=== PATIENT | male | born 1955 | race Caucasian/White ===

== ENCOUNTER 2023-04-22 20:56 | Inpatient (IN) | payer MEDICARE, SELFPAY ==
[2023-04-22 20:57] VITALS: BP 186/110; PULSE 111; RESP 12; TEMP 36.6; O2SAT 99
--- NOTE | 2023-04-22 21:05 | EKG12_ITS ---
Test Reason : CP Blood Pressure : / mmHG Vent. Rate : 097 BPM Atrial Rate : 097 BPM P-R Int : 162 ms QRS Dur : 072 ms QT Int : 340 ms P-R-T Axes : 039 025 047 degrees QTc Int : 431 ms Normal sinus rhythm Normal ECG Confirmed by Khoa Malagon ([id number]), city editor LIT GARNER ([id number]) on 04/24/2023 9:32:45 AM Referred By: Boris Garza Confirmed By:Khoa Malagon
--- NOTE | 2023-04-22 21:08 | ED.VIS.CHEST ---
HPI History of Present Illness Chief Complaint: Chest Pain [facility] Medical History (Updated 04/22/23 @ 23:[address] Boris Garza MD) Chest pain Diabetes History of chemotherapy Prostate cancer Home Medications enzalutamide 80 mg tablet (Xtandi) 80 mg PO DAILY 04/22/23 [History Last Taken Unknown] metformin 500 mg tablet 500 mg PO BID 04/22/23 [History Last Taken Unknown] Allergy/AdvReac Type Severity Reaction Status Date / Time No Known Allergies Allergy Verified 04/22/23 20:59 Family History (Updated 04/22/23 @ 21:23 by Dede Givens) Father Myocardial infarction Sister Cancer Social History Smoking Status: Never smoker EXAM Physical Exam Const Vital Signs: 04/22/23 20:57 Temperature 98 F Temperature Source Temporal Pulse Rate 111 H Respiratory Rate 12 Blood Pressure 186/110 H Blood Pressure Mean 135 Pulse Ox 99 Oxygen Delivery Method Room Air MDM MDM MDM Narrative Medical decision making narrative: HISTORY OF PRESENT ILLNESS: 68-year-old male presents with chest pain. Notes diaphoresis. Notes left-sided chest pain. Is nonradiating. It is not exertional. It is worse with with a deep breath. Denies any bleeding diathesis. Denies any vomiting. Denies any cough or fever. Denies any leg swelling. Notes history of prostate cancer last chemo was 2 weeks ago. Denies history of blood clots. Denies history of smoking. Notes no cardiac history. Denies loss of consciousness. REVIEW OF SYSTEMS: Pertinent positives: Chest pain, diaphoresis Pertinent negatives: Shortness of breath, cough, syncope PHYSICAL EXAM: Nursing triage notes reviewed, Vital signs reviewed Constitutional: please see mdm HENT: MMM Eyes: Pupils equal round and reactive to light, Extraocular muscles intact Neck: No stridor, no JVD, full neck ROM Lungs: Clear to auscultation, No wheezing or rales. No increased work of breathing, no conversational dyspnea, no accessory muscle use, no nasal flaring. No respiratory distress noted Heart: Regular rate and rhythm, No murmurs, No rubs and No gallops, 2+ distal pulses (radial, femoral, posterior tibial) in all extremities Abdomen: Soft, there is no tenderness, rigidity, rebound or guarding, no obvious peritoneal signs, no palpable pulsatile abdominal masses, no auscultated abdominal bruit : No CVAT Extremities: No edema, no stigmata of VTE Neuro: No focal neurological deficits, cranial nerves II through XII intact, 5/5 strength in all extremities. Intact sensation to light touch in all extremities, 2+ reflexes bilateral patella tendons. Normal gait. No ataxia. Skin: No rash or lesions noted MEDICAL DECISION MAKING: Chief Complaint: Chest pain External records reviewed: No recent Jenkins imaging of the chest Factors affecting care: Type 2 diabetes, hyperlipidemia, prostate cancer Social determinants of health: none History obtained from others: The patient's family Consults: Internal medicine MDM Narrative: Patient was initially tachycardic, hypertensive, he was afebrile. No focal lung findings. No pulse deficits. No stigmata of VTE or lower extremity edema noted on exam. I considered the following differential diagnosis: ACS, PE, aortic dissection, anemia, arrhythmia, pneumonia The patient no cough, fever or chills no focal lung findings to suggest pneumonia. He is not hypoxic to suggest pneumonia either. ALL IMAGES (IF OBTAINED) HAVE BEEN PERSONALLY REVIEWED AND INTERPRETED BY MYSELF. Initial EKG showed normal sinus rhythm, normal axis, normal normals, no STEMI High-sensitivity troponin is negative, no evidence of myocardial ischemia CBC with mild anemia, no thrombocytopenia or leukocytosis BMP without evidence of significant electrolyte abnormalities, no anion gap, no acute kidney injury. CT of the chest shows no evidence of PE or pneumonia I have personally reviewed the patient's chest x-ray. Chest x-ray is unremarkable for pulmonary edema, pneumothorax, pneumonia or focal cardiopulmonary abnormality. I have a low suspicion for pneumonia given patient no elevated white blood cell count, no fever no focal findings on chest x-ray. The etiology patient complaint remains unclear however he does have an elevated heart score and has active chest pain. Will continue serial cardiac biomarkers. Gave as needed nitroglycerin and morphine. Discussed case with Dr. Garza accept the case to the floor. The patient and/or family, caregivers express understanding. The patient and/or family, caregivers agrees with the plan. Shared decision making: I will have a discussion with the patient and or visitors regarding risk/benefits of further testing or admission. They will be made aware of of the risk/benefits inherent in this decision they will be given the opportunity to voice understanding. Total critical care time today provided was at least 0 minutes. This excludes separately billable procedures. Critical care time (if documented) is secondary to the patient having high probability of clinically significant/life threatening deterioration in the patient's condition which required my urgent intervention. Impression: 1. Chest pain 2. Anemia Dispo: Admit to floor for observation, serial biomarkers and confirmatory testing This note was generated with [employer] dictation software. It may contain incorrect words, spelling, and punctuation that were not noted in review of the chart prior to signing. Discharge Plan Triage Chief Complaint: Chest Pain ED Provider: Genaro Seals Dx/Rx/DC Orders Primary Care Provider: Yogesh Fraser
[2023-04-22 21:10] LABS: Absolute Lymphocyte Count 0.42 X10^3/uL (0.83-4.51); Absolute Neutrophil Count 3.5 X10^3/uL (2.0-7.7); Basophil# 0.04 X10^3/uL; Basophil% 0.9 % (0-1); Eosinophil# 0.19 X10^3/uL; Eosinophils% 4.1 % (0-5); Hematocrit 34.6 % (40-54); Hemoglobin 12.2 g/dL (13.0-16.5); Lymphocyte # 0.42 X10^3/ul (0.83-4.51); Mean Corp Hgb Conc 35.3 g/dL (32-36); Mean Corpuscular Hgb 32.4 pg (27.0-32.0); Mean Corpuscular Volume 91.8 fL (80-94); Mean Platelet Vol. 10.4 fl (6.2-12.0); Monocyte# 0.52 X10^3/uL; Monocyte% 11.1 % (0-10); NRBC Flagged by Analyzer 0 % (0-5); Neutrophil # 3.47 X10^3/uL (2.7-7.7); Neutrophil % 74.3 % (47-70); POSITIVE DIFFERENTIAL YES; Platelet Count 201 K/mm3 (150-450); RBC Distribution Width CV 13.9 % (11.6-14.6); RBC Distribution Width SD 45.1 fl (35.1-43.9); Red Blood Count 3.77 M/mm3 (4.6-6.2); White Blood Count 4.7 K/mm3 (4.4-11.0)
[2023-04-22 21:13] VITALS: BP 161/95; PULSE 105; RESP 20; O2SAT 98
[2023-04-22 21:14] VITALS: BMI 31.8
--- NOTE | 2023-04-22 21:20 | RAD_ITS ---
INDICATION: chest pain EXAMINATION/TECHNIQUE: X-RAY - XR Chest 1 View COMPARISON: CT chest obtained subsequently, April 22, 2023 at 9:41 PM. FINDINGS: LINES/DEVICES: None. LUNGS: Left lower lobe/lingular thin linear opacity suggesting atelectasis or scarring. Lungs are otherwise clear without consolidation, nodule, pleural effusion or pneumothorax. Interstitial pattern is normal. MEDIASTINUM AND CARDIOVASCULAR STRUCTURES: Normal size and contour of the cardiomediastinal silhouette. No evidence of pulmonary vascular congestion. BONES AND SOFT TISSUES: Degenerative arthrosis acromioclavicular joints. RAD/Chest 1 View (Portable) IMPRESSION: 1. Left lower lobe/lingular linear opacity suggesting scarring or atelectasis. Electronically Signed: Khoa Goldsmith DO at 22:23 EST ,
--- NOTE | 2023-04-22 21:25 | CT_ITS ---
STUDY: CTA CHEST REASON FOR EXAM: Male, 68 years old. chest pain on chemo, tachy rule out PE RADIATION DOSAGE (If Supplied By Facility): CTDIvol = ( 11.16 ) mGy, DLP = ( 410.61 ) mGycm TECHNIQUE: The examination was performed with the intravenous administration of IV 100mL Isovue-370. Post-processing of the angiographic images was performed, with multiplanar reformation and 3D reconstruction. Individualized dose optimization techniques were used for this CT. COMPARISON: Chest x-ray April 22, 2023. FINDINGS: Adequate density of contrast in the pulmonary arteries and no significant motion; diagnostic exam. No pulmonary artery filling defect to suggest pulmonary embolism. There is no evidence of right heart strain. Normal size heart. No pericardial fluid. Minimal coronary artery calcifications. No mediastinal or hilar lymphadenopathy. There is some mild proximal peribronchial opacity/thickening bilaterally. No appreciable narrowing of bronchial airways. No endobronchial debris. Normal lung volumes without airtrapping. No airspace opacity or abnormal interstitial pattern. No nodule or mass. No pleural effusion or pneumothorax. There is posterior, inferior lingular scarring and/or atelectasis. Thyroid gland and base of the neck are within normal limits. No axillary lymphadenopathy. No fracture or focal osseous lesion. Visualized solid and hollow viscus organs are within normal limits of the exam. CT/CTA Chest W/WO Contrast IMPRESSION: 1. No pulmonary embolism. 2. Mild bilateral peribronchial opacity/thickening. No appreciable narrowing of the bronchial airways. No endobronchial debris. 3. Posterior, inferior, lingular scarring and/or atelectasis. Electronically Signed: Khoa Goldsmith DO at 22:41 EST ,
[2023-04-22 21:28] LABS: Anion Gap 5 (5-15); BUN 23 mg/dL (7-18); Calcium,Total 9.5 mg/dL (8.5-10.1); Chloride 109 mmol/L (98-107); Creatinine, Serum 1.15 mg/dL (0.70-1.30); EST Glomerular Filtration Rate 67 mL/min (>60); Est Glom Filt Rate - Afr Amer 81 mL/min (>60); Estimated Creatinine Clearance 67.78 ml/min; Glucose 174 mg/dL (74-106); Potassium 4.2 mmol/L (3.5-5.1); Sodium Level 138 mmol/L (136-145); Troponin-I HS (w/2H Reflex) 4 pg/mL (3.0-78.0)
[2023-04-22 22:00] VITALS: BP 174/122; PULSE 100; RESP 25; O2SAT 96
[2023-04-22] MEDS: 0.9% Normal Saline (1000mL) 1,000 ML 999 ML IV (22:07)
[2023-04-22 22:21] VITALS: BP 164/95; PULSE 97
[2023-04-22] MEDS: Nitroglycerin SL (ED/IMG/CATH) 0.4 MG TABLET 0.400000000000000022 MG SL (22:21)
--- NOTE | 2023-04-22 22:56 | EKG12_ITS ---
Test Reason : ADMIT EKG Blood Pressure : / mmHG Vent. Rate : 097 BPM Atrial Rate : 097 BPM P-R Int : 172 ms QRS Dur : 084 ms QT Int : 348 ms P-R-T Axes : 049 018 042 degrees QTc Int : 441 ms Normal sinus rhythm Normal ECG When compared with ECG of 22-APR-2023 23:13, MANUAL COMPARISON REQUIRED, DATA IS UNCONFIRMED Confirmed by Khoa Mlaagon ([id number]), video editor LIT GARNER ([id number]) on 04/23/2023 2:20:40 PM Referred By: Boris Garza Confirmed By:Khoa Malagon
--- NOTE | 2023-04-22 23:03 | PCM.HP.STD ---
HPI - General General Date of Admission: 04/22/23 Date of Service: 04/22/23 Chief Complaint: Chest pain HPI Narrative PRATIMA TAO, is a 68 M who presents to the emergency room with acute chest pain. Patient has significant past medical history of prostate cancer in remission who received chemotherapy last Saturday. Patient states this evening he was carrying some bags up the some stairs when he developed substernal chest discomfort along with start shortness of breath and nausea but no vomiting. Patient denies any cardiac history and no previous cardiac stress test. Initial troponin was negative in the emergency room EKG x [address] was negative for acute ST changes. Patient also denies a history of smoking. Currently during my interview the patient's chest pressure was substernal nonradiating and described as 7/10 in strength. His blood pressure was initially hypertensive upon arrival but after receiving nitroglycerin had lowered substantially and was being monitored. Blood pressure had recovered to normotensive and therefore he could receive another dose of nitroglycerin per my request in the emergency room prior to being transferred to the progressive care unit for observation. Patient will be admitted to PCU cardiac enzymes monitored and stress test in the morning. [facility] Medical History (Updated 04/22/23 @ 23:[address] Boris Garza MD) Chest pain Diabetes History of chemotherapy Prostate cancer Home Medications enzalutamide 80 mg tablet (Xtandi) 80 mg PO DAILY 04/22/23 [History Last Taken Unknown] metformin 500 mg tablet 500 mg PO BID 04/22/23 [History Last Taken Unknown] Allergy/AdvReac Type Severity Reaction Status Date / Time No Known Allergies Allergy Verified 04/22/23 20:59 Family History (Updated 04/22/23 @ 21:23 by Dede Givens) Father Myocardial infarction Sister Cancer Social History Smoking Status: Never smoker ROS Constitutional Constitutional: Denies chills or fever(s) Eyes Eyes: Denies blurry vision ENT HEENT: Denies abnormal hearing Cardiovascular Cardiovascular: Reports chest pain Respiratory/Chest Respiratory/Chest: Denies cough Gastrointestinal Gastrointestinal: Denies abdominal pain or diarrhea Genitourinary Genitourinary: Denies dysuria Musculoskeletal Musculoskeletal: Denies back pain or extremity pain Integumentary Integumentary: Denies dry skin Neurologic Neurologic: Denies abnormal gait Psychiatric Psychiatric: Denies anxiety Vital Signs Vital Signs Vital Signs: 04/22/23 20:57 04/22/23 21:13 04/22/23 21:05 Temperature 98 F Temperature Source Temporal Pulse Rate 111 H 105 H Respiratory Rate 12 20 H Respiratory Effort Respiratory Pattern Blood Pressure 186/110 H 161/95 H Blood Pressure Mean 135 117 Pulse Ox 99 98 Oxygen Delivery Method Room Air Room Air Room Air 04/22/23 21:28 04/22/23 22:00 04/22/23 22:21 Temperature Temperature Source Pulse Rate 100 Respiratory Rate 25 H Respiratory Effort Short of Breath Respiratory Pattern Normal Blood Pressure 174/122 H 164/95 H Blood Pressure Mean 139 118 Pulse Ox 96 Oxygen Delivery Method Room Air 04/22/23 22:21 Temperature Temperature Source Pulse Rate 97 Respiratory Rate Respiratory Effort Respiratory Pattern Blood Pressure 164/95 H Blood Pressure Mean Pulse Ox Oxygen Delivery Method Weight Weight: 209 lb 7.026 oz Body Mass Index (BMI) 31.8 Physical Exam Const alert, oriented x3 and no apparent distress General Appearance: cooperative and well developed HEENT normocephalic and head/scalp atraumatic Eyes PERRL Neck no lymphadenopathy Lymph Lymphatic: no lymphadenopathy noted Resp normal respiratory effort, normal air movement and clear to auscultation bilaterally Cardio regular rate, regular rhythm, S1 normal heart sound, S2 normal heart sound and no murmurs GI normal to inspection, nondistended, normoactive bowel sounds Extremity normal capillary refill Skin General Skin Exam: no breakdown Neuro no focal motor deficits and no sensory deficits noted Psych thought process normal, cooperative and affect normal Appearance: appropriate Results Lab / Micro Data 04/22/23 21:06 04/22/23 21:06 Labs: Laboratory Results - last 24 hr 04/22/23 21:06: WBC 4.7, RBC 3.77 L, Hgb 12.2 L, Hct 34.6 L, MCV 91.8, MCH 32.4 H, MCHC 35.3, RDW Std Deviation 45.1 H, RDW Coeff of Terra 13.9, Plt Count 201, MPV 10.4, Immature Gran % (Auto) 0.600, Neut % (Auto) 74.3 H, Lymph % (Auto) 9.0 L, [place] % (Auto) 11.1 H, Eos % (Auto) 4.1, Baso % (Auto) 0.9, Absolute Neuts (auto) 3.5, Absolute Lymphs (auto) 0.42 L, Nucleated RBC % 0, Sodium 138, Potassium 4.2, Chloride 109 H, Carbon Dioxide 24.0, Anion Gap 5, BUN 23 H, Creatinine 1.15, Estim Creat Clear Calc 67.78, Est GFR (MDRD) Af Amer 81, Est GFR (MDRD) Non-Af 67, BUN/Creatinine Ratio 20.0, Glucose 174 H, Calcium 9.5, Troponin I High Sens 4 Imaging Radiology Impression Chest X-Ray 04/22/23 21:20 IMPRESSION: 1. Left lower lobe/lingular linear opacity suggesting scarring or atelectasis. Electronically Signed: Khoa Goldsmith DO at 22:23 EST , Chest CTA 04/22/23 21:25 IMPRESSION: 1. No pulmonary embolism. 2. Mild bilateral peribronchial opacity/thickening. No appreciable narrowing of the bronchial airways. No endobronchial debris. 3. Posterior, inferior, lingular scarring and/or atelectasis. Electronically Signed: Khoa Goldsmith DO at 22:41 EST , Assessment & Plan Assessment/Plan (1) Prostate cancer: (2) History of chemotherapy: (3) Diabetes: (4) Chest pain: PLAN: Plan 1. Chest pain?rule out GA, admit for observation to progressive care unit, cycle cardiac enzymes per routine, order nuclear exercise stress test for the morning. Will add as needed nitroglycerin and morphine as needed for chest pain with parameters regarding blood pressure. Will also add baby aspirin 2. Diabetes?continue routine home medication 3. Prostate cancer and history of chemotherapy?stable will continue routine home medications at this time 4. DVT prophylaxis?low molecular weight heparin Charges/Coding Visit Charges OBSV E&M: 13015 Observ/hosp same date L2
[2023-04-22 23:08] LABS: Reflex Troponin-HS? (from REC) Y
[2023-04-22] MEDS: Ketorolac 15 MG/ML Vial IV (23:25)
--- NOTE | 2023-04-22 23:29 | EKG12_ITS ---
Test Reason : REPEAT CP Blood Pressure : / mmHG Vent. Rate : 101 BPM Atrial Rate : 101 BPM P-R Int : 168 ms QRS Dur : 076 ms QT Int : 344 ms P-R-T Axes : 060 029 056 degrees QTc Int : 446 ms Sinus tachycardia Otherwise normal ECG Confirmed by Khoa Malagon ([id number]), social media editor LIT GARNER ([id number]) on 04/24/2023 9:33:18 AM Referred By: Boris Garza Confirmed By:Khoa Malagon
[2023-04-22 23:30] VITALS: BP 122/75; PULSE 107; RESP 23; TEMP 37.1; O2SAT 94
[2023-04-22 23:42] VITALS: BMI 30.9
[2023-04-22 23:47] VITALS: BP 119/65; PULSE 103; RESP 20; TEMP 37.2; O2SAT 97
[2023-04-22 23:47] LABS: Troponin-I HS 4 pg/mL (3.0-78.0)
[2023-04-23] MEDS: Aspirin 325 MG Tablet PO (00:07)
[2023-04-23 00:10] VITALS: O2SAT 97
--- NOTE | 2023-04-23 00:11 | EKG12_ITS ---
Test Reason : REPEAT CP Blood Pressure : / mmHG Vent. Rate : 099 BPM Atrial Rate : 099 BPM P-R Int : 164 ms QRS Dur : 080 ms QT Int : 344 ms P-R-T Axes : 043 019 048 degrees QTc Int : 441 ms Normal sinus rhythm Normal ECG Confirmed by Khoa Malagon ([id number]), order editor LIT GARNER ([id number]) on 04/24/2023 9:32:56 AM Referred By: Boris Garza Confirmed By:Khoa Malagon
[2023-04-23 03:35] LABS: Absolute Lymphocyte Count 0.31 X10^3/uL (0.83-4.51); Absolute Neutrophil Count 3.2 X10^3/uL (2.0-7.7); Basophil# 0.03 X10^3/uL; Basophil% 0.7 % (0-1); Eosinophil# 0.07 X10^3/uL; Eosinophils% 1.7 % (0-5); Hematocrit 29.7 % (40-54); Hemoglobin 10.7 g/dL (13.0-16.5); Lymphocyte # 0.31 X10^3/ul (0.83-4.51); Lymphocyte % 7.4 % (19-41); Mean Corpuscular Hgb 33.4 pg (27.0-32.0); Mean Corpuscular Volume 92.8 fL (80-94); Mean Platelet Vol. 9.2 fl (6.2-12.0); Monocyte# 0.61 X10^3/uL; Monocyte% 14.5 % (0-10); NRBC Flagged by Analyzer 0 % (0-5); Neutrophil # 3.18 X10^3/uL (2.7-7.7); Neutrophil % 75.5 % (47-70); POSITIVE DIFFERENTIAL YES; Platelet Count 130 K/mm3 (150-450); RBC Distribution Width CV 13.7 % (11.6-14.6); RBC Distribution Width SD 45.7 fl (35.1-43.9); White Blood Count 4.2 K/mm3 (4.4-11.0)
[2023-04-23 03:52] LABS: Anion Gap 5 (5-15); BUN 23 mg/dL (7-18); BUN/Creat Ratio 22.1 RATIO (10-20); Calcium,Total 8.4 mg/dL (8.5-10.1); Chloride 108 mmol/L (98-107); Creatinine, Serum 1.04 mg/dL (0.70-1.30); EST Glomerular Filtration Rate 75 mL/min (>60); Est Glom Filt Rate - Afr Amer 91 mL/min (>60); Estimated Creatinine Clearance 76.25 ml/min; Glucose 190 mg/dL (74-106); Potassium 4.3 mmol/L (3.5-5.1); Sodium Level 141 mmol/L (136-145)
[2023-04-23 03:55] LABS: Troponin-I HS 6 pg/mL (3.0-78.0)
[2023-04-23 05:45] VITALS: BP 115/69; PULSE 85; RESP 16; TEMP 36.2; O2SAT 95
[2023-04-23 07:14] VITALS: O2SAT 97
--- NOTE | 2023-04-23 07:55 | PN.HOSP_ITS ---
Reason for Visit Reason for Visit: Diagnoses Malignant neoplasm of prostate (04/22/23) Type 2 diabetes mellitus without complications (04/22/23) Chest pain, unspecified (04/22/23) Personal history of antineoplastic chemotherapy (04/22/23) Subjective Subjective Patient is a 68-year-old gentleman admitted with chest pain Objective Data Objective Data Vital Signs: Vital Signs Temp Pulse Resp BP Pulse Ox O2 Del Method 97.1 F L 85 16 115/69 97 Room Air 04/23/23 05:45 04/23/23 05:45 04/23/23 05:45 04/23/23 05:45 04/23/23 07:14 04/23/23 07:14 Oxygen Delivery Method Room Air Weight: 95 kg Body Mass Index (BMI) 30.9 Intake & Output: Intake and Output for Last 24 Hours 04/21/23 04/22/23 04/23/23 23:59 23:59 23:59 Intake Total 1000 / 1100 100 / 100 Output Total 400 / 400 Balance 1000 / 1100 -300 / -300 Lab / Micro Data 04/23/23 03:24 04/23/23 03:24 Labs: Laboratory Results - last 24 hr 04/22/23 21:06: WBC 4.7, RBC 3.77 L, Hgb 12.2 L, Hct 34.6 L, MCV 91.8, MCH 32.4 H, MCHC 35.3, RDW Std Deviation 45.1 H, RDW Coeff of Terra 13.9, Plt Count 201, MPV 10.4, Immature Gran % (Auto) 0.600, Neut % (Auto) 74.3 H, Lymph % (Auto) 9.0 L, [place] % (Auto) 11.1 H, Eos % (Auto) 4.1, Baso % (Auto) 0.9, Absolute Neuts (auto) 3.5, Absolute Lymphs (auto) 0.42 L, Nucleated RBC % 0, Sodium 138, Potassium 4.2, Chloride 109 H, Carbon Dioxide 24.0, Anion Gap 5, BUN 23 H, Creatinine 1.15, Estim Creat Clear Calc 67.78, Est GFR (MDRD) Af Amer 81, Est GFR (MDRD) Non-Af 67, BUN/Creatinine Ratio 20.0, Glucose 174 H, Calcium 9.5, Troponin I High Sens 4 04/22/23 23:15: Troponin I High Sens 4 04/23/23 03:24: WBC 4.2 L, RBC 3.20 L, Hgb 10.7 L, Hct 29.7 L, MCV 92.8, MCH 33.4 H, MCHC 36.0, RDW Std Deviation 45.7 H, RDW Coeff of Terra 13.7, Plt Count 130 L, MPV 9.2, Immature Gran % (Auto) 0.200, Neut % (Auto) 75.5 H, Lymph % (Auto) 7.4 L, [place] % (Auto) 14.5 H, Eos % (Auto) 1.7, Baso % (Auto) 0.7, Absolute Neuts (auto) 3.2, Absolute Lymphs (auto) 0.31 L, Nucleated RBC % 0, Sodium 141, Potassium 4.3, Chloride 108 H, Carbon Dioxide 28.0, Anion Gap 5, BUN 23 H, Creatinine 1.04, Estim Creat Clear Calc 76.25, Est GFR (MDRD) Af Amer 91, Est GFR (MDRD) Non-Af 75, BUN/Creatinine Ratio 22.1 H, Glucose 190 H, Calcium 8.4 L, Troponin I High Sens 6 Radiography Diagnostic Testing: Radiology Impression Chest X-Ray 04/22/23 21:20 IMPRESSION: 1. Left lower lobe/lingular linear opacity suggesting scarring or atelectasis. Electronically Signed: Khoa Goldsmith DO at 22:23 EST , Chest CTA 04/22/23 21:25 IMPRESSION: 1. No pulmonary embolism. 2. Mild bilateral peribronchial opacity/thickening. No appreciable narrowing of the bronchial airways. No endobronchial debris. 3. Posterior, inferior, lingular scarring and/or atelectasis. Electronically Signed: Khoa Goldsmith DO at 22:41 EST , Physical Exam Narrative GENERAL: cooperative HEENT: Atraumatic; normocephalic EYES; Anicteric, Normal Conjunctiva NECK; supple, normal thyroid, RESPIRATORY: Diminished to auscultation CARDIOVASCULAR: Regular S1 S2, GI: soft, normoactive bowel sounds, : No Renal angle tenderness; EXTREMITIES: No edema, no clubbing, MUSCULOSKELETAL: no muscle wasting NEURO: Awake; no lateralizing signs. SKIN: No Rash PSYCH; Flat affect Assessment & Plan Assessment/Plan (1) Chest pain: PLAN: Plan Patient is a 68-year-old gentleman admitted with chest pain 1. Chest pain ? Admitted to monitored bed MD being ruled out with serial cardiac enzymes. Patient complete workup with a nuclear stress test 2. Diabetes mellitus type 2 ? Patient on metformin held please on Accu-Cheks before meals and at bedtime with sliding scale coverage 3. History of prostate cancer ? Currently in remission patient is on Xtandi, did continue 4. Class I obesity with BMI of 31 ? Weight loss advised 5. DVT prophylaxis ? SC Lovenox Time spent in the patient's overall evaluation,decision-making process, review of diagnostic data, adjustment of management, discussion with other providers, nursing nursing and ancillary staff involved in patient's care documentation, 35 Minutes Charges/Coding Visit Charges Inpatient E&M: 24366 Subs Hosp L2
[2023-04-23] MEDS: 0.9% Saline Lock 10 ML Syringe IV (08:46)
[2023-04-23 10:52] VITALS: BP 130/76; PULSE 96; RESP 16; TEMP 37; O2SAT 97
--- NOTE | 2023-04-23 11:14 | STRESSREP ---
Stress Test Report Date: 04/23/2023 Procedure: Exercise tolerance test/imaging study Indications: Chest pain Consent: Per the patient Procedure: The patient exercised on a Skyler protocol for 6 minutes achieving a peak heart rate of 151 bpm (100% predicted maximal heart rate) with a peak blood pressure 164/70 mmHg and a peak MET capacity of 7.0 METs. The baseline ECG demonstrated sinus rhythm. The peak exercise ECG demonstrated no ischemic changes. There were no cardiac dysrhythmias pretest, during exercise, or recovery. The functional capacity was considered average. There was chest pain at baseline which remained unchanged through exercise and in recovery. The examination was discontinued secondary to target heart rate being achieved. The patient was injected with 11.9 mCi of technetium 99m Cardiolite and subsequently rest SPECT Cardiolite nuclear imaging was obtained in the horizontal long, vertical long, and short axis views. Post-exercise, the patient was injected with 34.7 mCi of technetium 99m Cardiolite and subsequently stress SPECT Cardiolite nuclear imaging was obtained in the horizontal long, vertical long, and short axis views. A gated Cardiolite study at peak stress was obtained. Rest and stress SPECT Cardiolite nuclear imaging status post realignment, normalization, and attenuation correction, demonstrates small reversible perfusion defect of the basal septum. There is end systolic thickening and brightening. The gated Cardiolite study demonstrates myocardial thickening and inward wall motion. The reported LVEF is 68%. Impression: 1. Technically adequate (percent predicted maximal heart rate greater than 85%) exercise tolerance test 2. Peak exercise ECG with no ischemic changes 3. There were no cardiac dysrhythmias pretest, during exercise, or recovery 4. Rest and stress SPECT Cardiolite nuclear imaging demonstrate mildly reduced perfusion of the basal septum postexercise, suggestive of the possibility of mild ischemia. 5. The gated Cardiolite study reports an LVEF of 68%. This note was generated with [employer] software. It may contain incorrect words, spelling, and punctuation that were not noted in checking the note before signing.
[2023-04-23] MEDS: ENZALUTAMIDE 80 MG TABLET 160 MG PO (12:01)
--- NOTE | 2023-04-23 15:45 | CON.PCM.CA_ITS ---
Assessment & Plan Assessment/Plan (1) Chest pain: QUALIFIERS: Chest pain type: other chest pain Qualified Code(s): R07.89 - Other chest pain PLAN: The patient developed chest pain last evening after carrying a heavy load up 2 flights of stairs. He describes this as a retrosternal discomfort that kept him from taking a deep breath. He had a negative CTA for pulmonary emboli chest x-ray showed some questionable lingula atelectasis otherwise was unremarkable. His EKG was unremarkable and his troponins were negative x 2 sets. However he had an abnormal nuclear stress test today. The patient does have a history of diabetes mellitus hyperlipidemia and a family history of coronary disease. (2) Abnormal stress test: PLAN: The patient's stress test was positive for inferior basal ischemia on the nuclear scan. I discussed this in detail with the patient and in light of his somewhat atypical symptoms but his risk factor profile I recommend that he undergo a left heart catheterization to definitively rule out significant coronary artery disease. The cath procedure risk/benefit and alternatives were explained to the patient in detail he voiced understanding and agrees to proceed. Dr. BLANC will perform the procedure tomorrow at 0830 hrs.. PLAN: Plan Left heart cath tomorrow morning. HPI Consult Data Date of Consult: 04/23/23 HPI Narrative Reason for Consultation: Chest pain with abnormal stress test HPI Narrative: PRATIMA TAO, is a 68 M who presents with an episode of chest pain last evening. This occurred after he carried a heavy load up 2 flights of stairs to his second floor apartment. It did not resolve with rest and he came to the emergency department. He had some residual chest symptoms throughout the night and even into this morning. His troponins high-sensitivity were negative in single digits. His EKG showed a normal sinus rhythm and J-point elevation otherwise was unremarkable and within normal limits. The patient denies any PND orthopnea denies any lower extremity edema he has no previous history of significant dyspnea on exertion. This is the first time he is ever had this type of chest discomfort which she described as retrosternal with minimal r adiation. The patient underwent a treadmill nuclear stress test today which showed inferior basilar ischemic changes. The patient does not have a history of hypertension he does have a history of hyperlipidemia and his statin therapy has been interrupted due to his prostate cancer therapy. He has never smoked. There is a family history of coronary disease and he is diabetic on metformin. Currently the patient is asymptomatic and resting comfortably in the seated position in his chair. [facility] Medical History Chest pain Diabetes History of chemotherapy Prostate cancer Home Medications enzalutamide 80 mg tablet (Xtandi) 80 mg PO DAILY 04/22/23 [History Last Taken Unknown] metformin 500 mg tablet 500 mg PO BID 04/22/23 [History Last Taken Unknown] Allergy/AdvReac Type Severity Reaction Status Date / Time No Known Allergies Allergy Verified 04/22/23 20:59 Family History Father Myocardial infarction Sister Cancer Social History Smoking Status: Never smoker ROS Constitutional Constitutional: Reports as per HPI Eyes Eyes: Reports systems reviewed and no addt'l complaints, except as documented ENT HEENT: Reports systems reviewed and no addt'l complaints, except as documented Cardiovascular Cardiovascular: Reports as per HPI Respiratory/Chest Respiratory/Chest: Reports as per HPI Gastrointestinal Gastrointestinal: Reports systems reviewed and no addt'l complaints, except as documented Genitourinary Genitourinary: Reports systems reviewed and no addt'l complaints, except as documented Musculoskeletal Musculoskeletal: Reports systems reviewed and no addt'l complaints, except as documented Integumentary Integumentary: Reports systems reviewed and no addt'l complaints, except as documented Neurologic Neurologic: Reports systems reviewed and no addt'l complaints, except as documented Psychiatric Psychiatric: Reports systems reviewed and no addt'l complaints, except as documented Endocrine Endocrinology: Reports systems reviewed and no addt'l complaints, except as documented Hematologic/Lymphatic Hematologic/Lymphatic: Reports systems reviewed and no addt'l complaints, except as documented Allergic/Immunologic Allergic/Immunologic: Reports systems reviewed and no addt'l complaints, except as documented Physical Exam Const oriented x3 HEENT normocephalic Eyes EOMs intact bilaterally Neck no JVD and no carotid bruits Chest inspection of chest normal Resp normal respiratory effort and clear to auscultation bilaterally Cardio regular rate, regular rhythm, S1 normal heart sound, S2 normal heart sound, no murmurs, no rub and no gallops Peripheral Pulses: radial pulses present bilateral 2+ and posterior tibial pulses present bilateral 2+ GI soft to palpation Extremity no pedal edema Skin no rashes or lesions noted Neuro Neuro Narrative: Alert and oriented x 3 Psych mental status grossly normal Risk Stratification Risk Stratification Applicable: Yes Age >/= 65: Yes >/= 3 CAD Risk Factors (HTN, HLD, DM, family hx of CAD, or current smoker): Yes Aspirin Use in the Past 7 Days: No Severe Angina (>/= episodes in 24 hours): Yes EKG ST Changes >/= 0.5mm: No Positive Cardiac Marker: No FELIX Risk Stratification Score: 3 FELIX % Risk: 13% Risk Charges/Coding Visit Charges Inpatient E&M: 21285 Init Hosp L2 Objective Data Vital Signs: Vital Signs Temp Pulse Resp BP Pulse Ox O2 Del Method 98.6 F 96 16 130/76 H 97 Room Air 04/23/23 10:52 04/23/23 10:52 04/23/23 10:52 04/23/23 10:52 04/23/23 10:52 04/23/23 10:52 Oxygen Delivery Method Room Air Weight: 209 lb 7.026 oz Body Mass Index (BMI) 30.9 Intake & Output: Intake and Output for Last 24 Hours 04/21/23 04/22/23 04/23/23 23:59 23:59 23:59 Intake Total 1000 / 1100 100 / 100 Output Total 400 / 400 Balance 1000 / 1100 -300 / -300 Lab / Micro Data Attestation: I reviewed the patient's lab results. 04/23/23 03:24 04/23/23 03:24 Labs: Laboratory Results - last 24 hr 04/22/23 21:06: WBC 4.7, RBC 3.77 L, Hgb 12.2 L, Hct 34.6 L, MCV 91.8, MCH 32.4 H, MCHC 35.3, RDW Std Deviation 45.1 H, RDW Coeff of Terra 13.9, Plt Count 201, MPV 10.4, Immature Gran % (Auto) 0.600, Neut % (Auto) 74.3 H, Lymph % (Auto) 9.0 L, Converse % (Auto) 11.1 H, Eos % (Auto) 4.1, Baso % (Auto) 0.9, Absolute Neuts (auto) 3.5, Absolute Lymphs (auto) 0.42 L, Nucleated RBC % 0, Sodium 138, Potassium 4.2, Chloride 109 H, Carbon Dioxide 24.0, Anion Gap 5, BUN 23 H, Creatinine 1.15, Estim Creat Clear Calc 67.78, Est GFR (MDRD) Af Amer 81, Est GFR (MDRD) Non-Af 67, BUN/Creatinine Ratio 20.0, Glucose 174 H, Calcium 9.5, Troponin I High Sens 4 04/22/23 23:15: Troponin I High Sens 4 04/23/23 03:24: WBC 4.2 L, RBC 3.20 L, Hgb 10.7 L, Hct 29.7 L, MCV 92.8, MCH 33.4 H, MCHC 36.0, RDW Std Deviation 45.7 H, RDW Coeff of Terra 13.7, Plt Count 130 L, MPV 9.2, Immature Gran % (Auto) 0.200, Neut % (Auto) 75.5 H, Lymph % (Auto) 7.4 L, [place]verse % (Auto) 14.5 H, Eos % (Auto) 1.7, Baso % (Auto) 0.7, Absolute Neuts (auto) 3.2, Absolute Lymphs (auto) 0.31 L, Nucleated RBC % 0, Sodium 141, Potassium 4.3, Chloride 108 H, Carbon Dioxide 28.0, Anion Gap 5, BUN 23 H, Creatinine 1.04, Estim Creat Clear Calc 76.25, Est GFR (MDRD) Af Amer 91, Est GFR (MDRD) Non-Af 75, BUN/Creatinine Ratio 22.1 H, Glucose 190 H, Calcium 8.4 L, Troponin I High Sens 6 Cardiology Labs/Tests 04/22/23 21:06: WBC 4.7, RBC 3.77 L, Hgb 12.2 L, Hct 34.6 L, MCV 91.8, MCH 32.4 H, MCHC 35.3, Plt Count 201, MPV 10.4, Immature Gran % (Auto) 0.600, Neut % (Auto) 74.3 H, Lymph % (Auto) 9.0 L, Converse % (Auto) 11.1 H, Eos % (Auto) 4.1, Baso % (Auto) 0.9, Absolute Neuts (auto) 3.5, Nucleated RBC % 0, Sodium 138, Pot assium 4.2, Chloride 109 H, Carbon Dioxide 24.0, Anion Gap 5, BUN 23 H, Creatinine 1.15, Est GFR (MDRD) Af Amer 81, Est GFR (MDRD) Non-Af 67, BUN/Creatinine Ratio 20.0, Glucose 174 H, Calcium 9.5 04/23/23 03:24: WBC 4.2 L, RBC 3.20 L, Hgb 10.7 L, Hct 29.7 L, MCV 92.8, MCH 33.4 H, MCHC 36.0, Plt Count 130 L, MPV 9.2, Immature Gran % (Auto) 0.200, Neut % (Auto) 75.5 H, Lymph % (Auto) 7.4 L, Converse % (Auto) 14.5 H, Eos % (Auto) 1.7, Baso % (Auto) 0.7, Absolute Neuts (auto) 3.2, Nucleated RBC % 0, Sodium 141, Potassium 4.3, Chloride 108 H, Carbon Dioxide 28.0, Anion Gap 5, BUN 23 H, Creatinine 1.04, Est GFR (MDRD) Af Amer 91, Est GFR (MDRD) Non-Af 75, BUN/Creatinine Ratio 22.1 H, Glucose 190 H, Calcium 8.4 L Rhythm: EKG: ECHO: Stress Test: Cardiac Cath: PCI: CT Surgery: Holter monitor: EPS: PPM: CXR: Chest CT Scan: Radiography Diagnostic Testing: Radiology Impression Chest X-Ray 04/22/23 21:20 IMPRESSION: 1. Left lower lobe/lingular linear opacity suggesting scarring or atelectasis. Electronically Signed: Khoa Goldsmith DO at 22:23 EST , Chest CTA 04/22/23 21:25 IMPRESSION: 1. No pulmonary embolism. 2. Mild bilateral peribronchial opacity/thickening. No appreciable narrowing of the bronchial airways. No endobronchial debris. 3. Posterior, inferior, lingular scarring and/or atelectasis. Electronically Signed: Khoa Goldsmith DO at 22:41 EST ,
[2023-04-23 15:54] VITALS: BP 129/65; PULSE 91; RESP 16; TEMP 36.2; O2SAT 96
[2023-04-23 21:54] VITALS: BP 163/84; PULSE 86; RESP 14; TEMP 36.8; O2SAT 96
[2023-04-24] VITALS (15 sets, daily range): BP systolic 112–154; BP diastolic 65–96; PULSE 74–90; RESP 16; TEMP 35.8–36.4; O2SAT 94–99
--- NOTE | 2023-04-24 05:55 | EKG12_ITS ---
Test Reason : AM EKG Blood Pressure : / mmHG Vent. Rate : 081 BPM Atrial Rate : 081 BPM P-R Int : 174 ms QRS Dur : 084 ms QT Int : 378 ms P-R-T Axes : 053 028 054 degrees QTc Int : 439 ms Normal sinus rhythm Normal ECG When compared with ECG of 23-APR-2023 00:24, No significant change was found Confirmed by Khoa Malagon ([id number]), international editorial producer LIT GARNER ([id number]) on 04/24/2023 1:33:07 PM Referred By: Boris Garza Confirmed By:Khoa Malagon
[2023-04-24 06:57] LABS: Anion Gap 8 (5-15); BUN 22 mg/dL (7-18); BUN/Creat Ratio 21.8 RATIO (10-20); Chloride 109 mmol/L (98-107); Creatinine, Serum 1.01 mg/dL (0.70-1.30); EST Glomerular Filtration Rate 78 mL/min (>60); Est Glom Filt Rate - Afr Amer 94 mL/min (>60); Estimated Creatinine Clearance 78.52 ml/min; Glucose 161 mg/dL (74-106); Sodium Level 142 mmol/L (136-145)
[2023-04-24] MEDS: 0.9% Normal Saline (1000mL) 1,000 ML 15 ML IV (07:58)
[2023-04-24] MEDS: 0.9% Saline Lock 10 ML Syringe IV ×2 (07:58→10:19)
--- NOTE | 2023-04-24 08:41 | PCM.PN.HOSP ---
Reason for Visit Reason for Visit: Diagnoses Malignant neoplasm of prostate (04/23/23) Type 2 diabetes mellitus without complications (04/23/23) Other chest pain (04/23/23) Chest pain, unspecified (04/23/23) Abnormal result of other cardiovascular function study (04/23/23) Personal history of antineoplastic chemotherapy (04/23/23) Subjective Subjective Patient admitted with chest pain underwent a nuclear stress test which was positive for inferior basal ischemia on the nuclear scan consult subsequently placed to cardiology plans for patient to undergo left heart cath Objective Data Objective Data Vital Signs: Vital Signs Temp Pulse Resp BP Pulse Ox O2 Del Method 96.6 F L 80 16 129/77 H 95 Room Air 04/24/23 07:53 04/24/23 07:53 04/24/23 07:53 04/24/23 07:53 04/24/23 07:53 04/24/23 07:53 Oxygen Delivery Method Room Air Weight: 95 kg Body Mass Index (BMI) 30.9 Intake & Output: Intake and Output for Last 24 Hours 04/22/23 04/23/23 04/24/23 23:59 23:59 23:59 Intake Total 1000 / 1100 100 / 220 120 / 120 Output Total 400 / 600 200 / 200 Balance 1000 / 1100 -300 / -380 -80 / -80 Lab / Micro Data 04/23/23 03:24 04/24/23 06:10 Labs: Laboratory Results - last 24 hr 04/24/23 06:10: Sodium 142, Potassium 4.0, Chloride 109 H, Carbon Dioxide 25.0, Anion Gap 8, BUN 22 H, Creatinine 1.01, Estim Creat Clear Calc 78.52, Est GFR (MDRD) Af Amer 94, Est GFR (MDRD) Non-Af 78, BUN/Creatinine Ratio 21.8 H, Glucose 161 H, Calcium 9.0 Physical Exam Narrative GENERAL: cooperative HEENT: Atraumatic; normocephalic EYES; Anicteric, Normal Conjunctiva NECK; supple, normal thyroid, RESPIRATORY: Diminished to auscultation CARDIOVASCULAR: Regular S1 S2, GI: soft, normoactive bowel sounds, : No Renal angle tenderness; EXTREMITIES: No edema, no clubbing, MUSCULOSKELETAL: no muscle wasting NEURO: Awake; no lateralizing signs. SKIN: No Rash PSYCH; Flat affect Assessment & Plan Assessment/Plan (1) Chest pain: QUALIFIERS: Chest pain type: other chest pain Qualified Code(s): R07.89 - Other chest pain (2) Abnormal stress test: PLAN: Plan Patient is a 68-year-old gentleman admitted with chest pain 1. Chest pain ? Admitted to monitored bed CO being ruled out with serial cardiac enzymes. Patient complete workup with a nuclear stress test ? 04/24/2023;Patient admitted with chest pain underwent a nuclear stress test which was positive for inferior basal ischemia on the nuclear scan consult subsequently placed to cardiology plans for patient to undergo left heart cath ? Patient left heart catheterization demonstrated Severe disease noted in the first obtuse marginal branch of the circumflex artery. Mild disease noted in the LAD and right coronary artery. Patient underwent PCI with CAROLINE in his OM1.. Subsequently started on guideline directed medical therapy 2. Diabetes mellitus type 2 ? Patient on metformin held please on Accu-Cheks before meals and at bedtime with sliding scale coverage 3. History of prostate cancer ? Currently in remission patient is on Xtandi, did continue 4. Class I obesity with BMI of 31 ? Weight loss advised 5. DVT prophylaxis ? SC Lovenox Time spent in the patient's overall evaluation,decision-making process, review of diagnostic data, adjustment of management, discussion with other providers, nursing nursing and ancillary staff involved in patient's care documentation, 50 Minutes Charges/Coding Visit Charges Inpatient E&M: 25532 [facility] Hosp L3
--- NOTE | 2023-04-24 08:59 | CL.D_ITS ---
Patient Name: PRATIMA TAO Study Date: 04/24/2023 Performing: Rolf Jay MD Ht: 68 inches 172.72 cm : 1955 Wt: 209.44 lbs 95 kg Age: 68 Gender: male BSA: 2.08 PROCEDURE(S) PERFORMED DC01-([id number])LHC/COR/LV CLINICAL PROFILE AND INDICATIONS Indications: Suspected CAD Heart Failure: None Stress/Imaging Date: 04/22/23Stress Test with SPECT MPI: Positive Low Risk CAD Presentations: Symptom unlikely to be ischemic. CONCLUSIONS Severe disease noted in the first obtuse marginal branch of the circumflex artery. Mild disease noted in the LAD and right coronary artery RECOMMENDATIONS Referred for immediate PCI DESCRIPTION OF PROCEDURE The patient arrived to the procedure lab. The risks and benefits of the procedure as well as a full description of our services here and current unavailability of surgical backup were fully explained to the patient and/or their significant other prior to the catheterization. The Timeout was completed, verifying the correct patient and procedure. The patient's procedural site was prepped and draped in the usual fashion. Local anesthetic was given subcutaneously to right radial region with Lidocaine 2%. Using a modified Seldinger technique, arterial access was obtained via the right radial artery, a 6Fr sheath was inserted. Right Coronary Artery selective angiography was then performed in multiple views using a 5 Fr. 4.0 [place] catheter. Left Coronary Artery selective angiography was performed in multiple views using a 5 Fr. JL3.5 catheter. CORONARY ANGIOGRAPHY DOMINANCE: Right Dominant LEFT HEART ASSESSMENT Left Ventricular Ejection Fraction: by Echo 55 % Normal LV wall motion Normal Left Ventricular systolic function LEFT MAIN: Ostial left main coronary LEFT ANTERIOR DESCENDING ARTERY: Medium size vessel with mild calcification noted in the mid LAD and approximately 30 to 40% stenosis and mild distal disease CIRCUMFLEX ARTERY: Nondominant right coronary artery with first obtuse marginal branch with 90% proximal stenosis and mild disease MID CIRC: Mild luminal irregularities RIGHT CORONARY ARTERY: Mild luminal irregularities COMPLICATIONS PROCEDURE MEDICATIONS Fentanyl 50 mcg IV Versed 1 mg IV Oxygen: 2 L/min via nasal cannula Aspirin (325mg) 1 Tabs PO 04/24/2023 08:17:41 Brilinta 180 mg PO @ 04/24/2023 08:52:19 Heparin given IA 04/24/2023 08:27:17 Heparin 7000 unit(s) IV 04/24/2023 08:56:24 Verapamil 2.5mg, Ntg 100mcgs, 3000 units of Heparin given IA 04/24/2023 08:27:17 SUMMARY OF HEMODYNAMIC DATA Time AIR REST ECG 08:17:48 AO 117/69 (91) SA 08:31:49 Signed By Rolf Jay MD On 04/24/2023 08:58:26 Rolf Jay MD
--- NOTE | 2023-04-24 10:04 | EKG12_ITS ---
Test Reason : post cath Blood Pressure : / mmHG Vent. Rate : 072 BPM Atrial Rate : 072 BPM P-R Int : 174 ms QRS Dur : 068 ms QT Int : 390 ms P-R-T Axes : 047 014 039 degrees QTc Int : 427 ms Normal sinus rhythm Normal ECG Confirmed by Khoa Malagon ([id number]), editorial director ANISH MONTOYA ([id number]) on 04/25/2023 2:38:46 PM Referred By: Boris Garza Confirmed By:Khoa Malagon
--- NOTE | 2023-04-24 10:16 | CL.I_ITS ---
Patient Name: PRATIMA TAO Study Date: 04/24/2023 Performing: Peirre Porter MD Ht: 68 inches 172.72 cm : 1955 Wt: 209.7 lbs 95 kg Age: 68 Gender: male BSA: 2.08 PROCEDURE(S) PERFORMED IC12-([id number])CAROLINE W/WO PTCA, SINGLE CORONARY ARTERY CLINICAL PROFILE AND CO-MORBIDITIES Indications: Suspected CAD Heart Failure: None Stress/Imaging Date: 04/22/23 Stress Test with SPECT MPI: Positive Low Risk CAD Presentations: Symptom unlikely to be ischemic. CONCLUSIONS Successful CAROLINE Prox OM1 using [place] 2.5x12 mm, post-dilated using 2.75 mm balloon RECOMMENDATIONS ASA Indefinitley Plavix for at least 12 months DESCRIPTION OF PROCEDURE The patient arrived to the procedure lab. The risks and benefits of the procedure as well as a full description of our services here and current unavailability of surgical backup were fully explained to the patient and/or their significant other prior to the catheterization. The Timeout was completed, verifying the correct patient and procedure. The patient's procedural site was prepped and draped in the usual fashion. Local anesthetic was given subcutaneously to right radial region with Lidocaine 2% Using a modified Seldinger technique,arterial access was obtained via the right radial artery, a 6Fr sheath was inserted. Right Coronary Artery selective angiography was then performed in multiple views using a 5 Fr. 4.0 [place] catheter. Left Coronary Artery selective angiography was performed in multiple views using a 5 Fr. JL3.5 catheter.The images were reviewed and options discussed. A decision was then made to proceed with an Intervention, IVUS or other adjunct procedure. Arterial sheath was exchanged for a 6 Fr Sheath. XB 3.5 Guide catheter was inserted and engaged into the LCA. Runthrough Guide wire was advanced to the 1st OM. 2.5 x 12 [place] Drug Eluting stent was inserted. Drug Eluting stent was advanced across the lesion in the first obtuse marginal, proximal. Angiogram performed post stent deployment. 2.5 x 12 [place] Emerge Balloon catheter was inserted post stent. 2.75 x 12 NC Emerge Balloon catheter was inserted post stent. Angiogram performed post balloon dilatation. The arterial sheath was pulled and a TR Band was applied for hemostasis. 15cc air inserted. INTERVENTION INFORMATION LESION SITE: 1st OM (Proximal) Lesion Complexity: Non-High/Non-C, lesion length: 10 mm Pre Stenosis: 90 % Pre intervention FELIX flow: 3 PROCEDURE: Drug Eluting Stent with post dilatation Post Stenosis: 0 % Post intervention FELIX flow: 3 Lesion Devices: Cordis 6 Fr XB3.5 100cm Guide Catheter Terumo .014 180cm Runthrough Extra Floppy straight Medtronic 2.50 x 12 VIDAL FRONTIER CAROLINE Colt Sci NC EMERGE MR 2.50x12 BALLOON Colt Sci NC EMERGE MR 2.75x12 BALLOON COMPLICATIONS No Complications PROCEDURE MEDICATIONS Fentanyl 50 mcg IV Versed 1 mg IV Oxygen: 2 L/min via nasal cannula Aspirin (325mg) 1 Tabs PO 04/24/2023 08:17:41 Brilinta 180 mg PO @ 04/24/2023 08:52:19 Heparin given IA 04/24/2023 08:27:17 Heparin 7000 unit(s) IV 04/24/2023 08:56:24 Heparin 2000 unit(s) IV 04/24/2023 09:26:32 Nitro 200 mcg IC 04/24/2023 09:16:50 Verapamil 2.5mg, Ntg 100mcgs, 3000 units of Heparin given IA 04/24/2023 08:27:17 SUMMARY OF HEMODYNAMIC DATA Time AIR REST ECG 08:17:48 AO 117/69 (91) SA 08:31:49 AO 146/79 (109) 09:10:08 AIR REST 09:38:42 Signed By Pierre Porter MD On 04/24/2023 10:16:10 Pierre Porter MD
[2023-04-24] MEDS: 0.9% Normal Saline (1000mL) 1,000 ML 150 ML IV (10:19)
[2023-04-24 11:18] LABS: Cholesterol 221 mg/dL (200); High Density Lipoprotein 66 mg/dL; Triglycerides 76 mg/dL; Very Low Density Lipoprotein 15 mg/dL (5-40)
[2023-04-24] MEDS: ENZALUTAMIDE 80 MG TABLET 160 MG PO (11:51)
[2023-04-24] MEDS: Carvedilol 3.125 MG TABLET PO ×2 (11:51→19:36)
--- NOTE | 2023-04-24 12:10 | CRPHASE1_ITS ---
Patient Communication Patient Information Former Patient:: Phase I and Phase II PHII Cardiac Rehab Discussed with Patient:: Yes Guide to Cardiac Rehab Given to Patient:: Yes Cardiac Rehab Facility Choice List Given to Patient:: Yes Communication to Cardiac Rehab Publications Production Supervisor:: Pierre Porter Refer Phase II Cardiac Rehab:: Yes Sessions:: 36 sessions - 3 days/wk, 12 weeks Cardiac Rehabilitation Info Program Information Cardiac Rehabilitation Program Information: Cardiac Rehab The cardiac rehab team at [facility] consists of highly skilled exercise physiologists, nurses, respiratory therapists and physicians working together with you. Our purpose is to help you have a full recovery and achieve the goals you set for yourself. Over the years many of our patients have returned to activities they assumed they would never do again! We can help restore your confidence and motivation to make lifestyle changes that can have a significant impact on your health and quality of life! We can help answer questions and concerns you may have about exercise, lifestyle, medications, diet, stress and anxiety which are common following a hospitalization. WE monitor ECG and vital signs during exercise and discuss your progress with you and report to your physician(s). Cardiac Rehab is proven to help reduce readmissions, improve functional capacity and lower recurrence of problems with your heart. Our Cardiac Rehab program is Certified by the [place] [employer] Pulmonary [employer] (AACVPR) and Accredited by the [place] [employer] through our [facility]. You can contact us at . We invite you to call us with your questions or to get started in our program. If you have other questions or concerns be sure to ask your physician/provider during your follow-up visit. WE look forward to seeing you!
--- NOTE | 2023-04-24 12:11 | CRPH1.INSTRU ---
General Education Discussed with Patient CAD and cardiac anatomy and function:: Patient communicates acknowledgment Explanation of diagnoses and procedures:: Patient communicates acknowledgment Sign/Symptoms of ID:: Patient communicates acknowledgment Antiplatelet therapy: Patient communicates acknowledgment Proper use of NTG-SL: Patient communicates acknowledgment Emergency procedures and activation of EMS: Patient communicates acknowledgment Compliance of all prescribed medications: Patient communicates acknowledgment Smoking Risk Factors Patient Nicotine/Smoking Risk Factors Are:: Non-smoker Dyslipidemia Recommendations Recommendations Include:: Lipid profile not available Overweight/Obesity Risk Factors Patient Overweight/Obesity Risk Factors Are:: Obesity - > or = 30 Recommendations Recommendations Include:: Weight loss of 5-10%, Reduced calorie diet and Exercise 5-7 times/week Response Code Overweight/Obesity:: Patient communicates acknowledgment Hypertension Recommendations Recommendations Include:: Maintain BP <130/85 Response Code Hypertension:: Patient communicates acknowledgment Heart Disease Recommendations Recommendations Include:: Educated family members of their risk Response Code Heart Disease Response Code:: Patient communicates acknowledgment Diabetes Risk Factors Patient Diabetes Risk Factors Are:: Elevated blood sugars Recommendations Recommendations Include:: Maintain fasting blood sugars 70-110 md/dL, Maintain HgbA1c of 6% or less, Monitor blood sugar as prescribed, Diabetic dietary guidelines and Decrease/maintain body weight Response Code Diabetes:: Patient communicates acknowledgment Metabolic Syndrome Recommendations Recommendations Include:: Does not meet criteria Sedentary Risk Factors Patient Sedentary Risk Factors Are:: Lack of regular exercise Recommendations Recommendations Include:: Aerobic exercise 5-7 times/week for 20-30 minutes continuously, Benefits of regular exercise, Discussed home walking program and Monitored Outpatient Cardiac Rehab Response Code Sedentary Response Code:: Family communicates acknowledgment Stress Recommendations Recommendations Include:: Identification of stressors, and assessment of coping skills and Stress management techniques Response Code Stress Response Code:: Patient communicates acknowledgment
--- NOTE | 2023-04-24 14:45 | CASEMGMT ---
RN CM Face to Face with patient for initial transition planning/care coordination assessment. RN CM introduced self and role at [facility]. Patient lying in bed, alert and oriented. Patient willing to participate in assessment and is able to answer all questions appropriately. Care providers, pharmacy, and demographics verified. PCP: Evelio Specialists: PASCUAL Tolentino Oncologist Preferred Pharmacy[facility] Insurance: [email or web address] Prescription Benefit: yes Living Will/HPOA: none LNOK: , brothers Living Arrangements: Patient lives alone in a 2 story home. Patient is independent at home and able to ambulate stairs. Transportation: self DME/HHC: Patient has grab bars at home. No previous HHC or SNF. Patient wishes to discharge home, denies need for home health at this time. Patient states he has no further needs or concerns at this time. CM to follow for discharge planning needs that may arise. Disposition Plan: Patient to discharge home with family support and follow-up plans in place. Lynnette TUCKER, RN, CM
[2023-04-24 16:36] LABS: ACT Activated Clotting Time 260 sec (74-137)
[2023-04-24 16:37] LABS: ACT Activated Clotting Time 260 sec (74-137)
[2023-04-24] MEDS: Clopidogrel Bisulfate 300 MG Tablet PO (17:06)
[2023-04-25 03:22] VITALS: BP 131/81; PULSE 84; RESP 14; TEMP 36.4; O2SAT 97
[2023-04-25 06:04] LABS: Absolute Lymphocyte Count 0.34 X10^3/uL (0.83-4.51); Basophil# 0.02 X10^3/uL; Basophil% 0.7 % (0-1); Eosinophil# 0.13 X10^3/uL; Eosinophils% 4.3 % (0-5); Hematocrit 31.3 % (40-54); Hemoglobin 11.3 g/dL (13.0-16.5); Lymphocyte # 0.34 X10^3/ul (0.83-4.51); Lymphocyte % 11.2 % (19-41); Mean Corp Hgb Conc 36.1 g/dL (32-36); Mean Corpuscular Hgb 33.3 pg (27.0-32.0); Mean Corpuscular Volume 92.3 fL (80-94); Mean Platelet Vol. 9.7 fl (6.2-12.0); Monocyte# 0.53 X10^3/uL; Monocyte% 17.4 % (0-10); NRBC Flagged by Analyzer 0 % (0-5); Neutrophil # 1.99 X10^3/uL (2.7-7.7); Neutrophil % 65.4 % (47-70); POSITIVE DIFFERENTIAL YES; Platelet Count 162 K/mm3 (150-450); RBC Distribution Width CV 13.7 % (11.6-14.6); RBC Distribution Width SD 45.1 fl (35.1-43.9); Red Blood Count 3.39 M/mm3 (4.6-6.2)
[2023-04-25 06:29] LABS: ALB/GLOB Ratio 0.9 RATIO (0.9-2.4); AST(SGOT) 19 U/L (15-37); Alanine Aminotransfer ALT/SGPT 25 U/L (16-61); Albumin, Serum 3.2 g/dL (3.2-5.0); Alkaline Phosphatase 74 U/L (45-117); Anion Gap 6 (5-15); BUN 20 mg/dL (7-18); BUN/Creat Ratio 21.5 RATIO (10-20); Calcium,Total 8.9 mg/dL (8.5-10.1); Chloride 111 mmol/L (98-107); Creatinine, Serum 0.93 mg/dL (0.70-1.30); EST Glomerular Filtration Rate 85 mL/min (>60); Est Glom Filt Rate - Afr Amer 103 mL/min (>60); Estimated Creatinine Clearance 85.27 ml/min; Globulin 3.4 g/dL (2.2-4.2); Glucose 165 mg/dL (74-106); Potassium 3.9 mmol/L (3.5-5.1); Protein, Total 6.6 g/dL (6.4-8.2); Sodium Level 141 mmol/L (136-145)
[2023-04-25 08:21] VITALS: BP 137/69; PULSE 87; RESP 18; TEMP 37; O2SAT 99
[2023-04-25] MEDS: Aspirin E.C. 81 MG Tablet PO (08:23)
[2023-04-25] MEDS: Carvedilol 3.125 MG TABLET PO (08:23)
[2023-04-25] MEDS: Clopidogrel Bisulfate 75 MG Tablet PO (08:24)
[2023-04-25] MEDS: Enoxaparin 40 MG/0.4 ML Syringe SC (08:24)
[2023-04-25 09:32] VITALS: O2SAT 95
--- NOTE | 2023-04-25 09:40 | PCM.DC.SUM ---
Providers Date of Admission: 04/23/23 Date of Discharge: 04/25/23 Primary Care Physician: Dr. Yogesh Fraser MD Consultations 04/23/23 13:39 Consult: Cardiology Routine Consulting Provider: Khoa Malagon Reason for Consult: Abnormal stress test EMERGENT Consult: No MD Notified: Yes Date Notified: 04/23/23 Time Notified: 13:40 Method of Notification: Verbal Reason For Visit: CHEST PAIN Diagnosis Discharge Diagnosis (1) Chest pain: Status: Acute Code(s): R07.9 - Chest pain, unspecified Qualifiers: Chest pain type: other chest pain Qualified Code(s): R07.89 - Other chest pain (2) Abnormal stress test: Status: Acute Code(s): R94.39 - Abnormal result of other cardiovascular function study Plan Patient is a 68-year-old gentleman admitted with chest pain 1. Chest pain ? Admitted to monitored bed MO being ruled out with serial cardiac enzymes. Patient complete workup with a nuclear stress test ? 04/24/2023;Patient admitted with chest pain underwent a nuclear stress test which was positive for inferior basal ischemia on the nuclear scan consult subsequently placed to cardiology plans for patient to undergo left heart cath ? Patient left heart catheterization demonstrated Severe disease noted in the first obtuse marginal branch of the circumflex artery. Mild disease noted in the LAD and right coronary artery. Patient underwent PCI with CAROLINE in his OM1.. Subsequently started on guideline directed medical therapy 2. Diabetes mellitus type 2 ? Patient on metformin held please on Accu-Cheks before meals and at bedtime with sliding scale coverage 3. History of prostate cancer ? Currently in remission patient is on Xtandi, did continue 4. Class I obesity with BMI of 31 ? Weight loss advised 5. DVT prophylaxis ? SC Lovenox Time spent in the patient's overall evaluation,decision-making process, review of diagnostic data, adjustment of management, discussion with other providers, nursing nursing and ancillary staff involved in patient's care documentation, 35 Minutes Medications at Discharge Home Medications enzalutamide 80 mg tablet (Xtandi) 80 mg PO DAILY 04/22/23 metformin 500 mg tablet 500 mg PO BID 04/22/23 aspirin 81 mg tablet,delayed release 81 mg PO BREAKFAST #90 tabs 04/25/23 atorvastatin 80 mg tablet 80 mg PO QHS #90 tabs 04/25/23 carvedilol 3.125 mg tablet 3.125 mg PO BID #180 tabs 04/25/23 clopidogrel 75 mg tablet 75 mg PO DAILY #90 tabs 04/25/23 Physical Exam Narrative GENERAL: cooperative HEENT: Atraumatic; normocephalic EYES; Anicteric, Normal Conjunctiva NECK; supple, normal thyroid, RESPIRATORY: Diminished to auscultation CARDIOVASCULAR: Regular S1 S2, GI: soft, normoactive bowel sounds, : No Renal angle tenderness; EXTREMITIES: No edema, no clubbing, MUSCULOSKELETAL: no muscle wasting NEURO: Awake; no lateralizing signs. SKIN: No Rash PSYCH; Flat affect Weight / BMI Weight Weight: 95 kg Body Mass Index (BMI) 30.9 ABG / Lab / Microbiology Data 04/25/23 05:31 04/25/23 05:31 Laboratory: Laboratory Results - last 24 hr 04/24/23 06:10: Triglycerides 76, Cholesterol 221 H, LDL Cholesterol 140 H, VLDL Cholesterol 15, HDL Cholesterol 66 04/24/23 09:15: Activated Clotting Time 260 H 04/24/23 09:35: Activated Clotting Time 260 H 04/24/23 14:05: Activated Clotting Time Cancelled 04/25/23 05:31: WBC 3.0 L, RBC 3.39 L, Hgb 11.3 L, Hct 31.3 L, MCV 92.3, MCH 33.3 H, MCHC 36.1 H, RDW Std Deviation 45.1 H, RDW Coeff of Terra 13.7, Plt Count 162, MPV 9.7, Immature Gran % (Auto) 1.000 H, Neut % (Auto) 65.4, Lymph % (Auto) 11.2 L, [place] % (Auto) 17.4 H, Eos % (Auto) 4.3, Baso % (Auto) 0.7, Absolute Neuts (auto) 2.0, Absolute Lymphs (auto) 0.34 L, Nucleated RBC % 0, Sodium 141, Potassium 3.9, Chloride 111 H, Carbon Dioxide 24.0, Anion Gap 6, BUN 20 H, Creatinine 0.93, Estim Creat Clear Calc 85.27, Est GFR (MDRD) Af Amer 103, Est GFR (MDRD) Non-Af 85, BUN/Creatinine Ratio 21.5 H, Glucose 165 H, Calcium 8.9, Total Bilirubin 0.80, AST 19, ALT 25, Alkaline Phosphatase 74, Total Protein 6.6, Albumin 3.2, Globulin 3.4, Albumin/Globulin Ratio 0.9 D/C Instructions Discharge Diet: No restrictions Discharge Activity: Return to Normal Activity Call your doctor if you observe: Fever of 101 or Higher, Shortness of breath, Fainting spells and Chest pain Meaningful Use Info Meaningful Use Diagnoses (Choose all that apply): None applicable Discharge Plan Admission Admit Date/Time: 04/23/23 15:22 Attending Provider: [place] Primary Care Provider: Yogesh Fraser Consulting Providers: Boris Garza; Khoa Malagon Discharge Orders/Prescriptions Prescriptions: New aspirin 81 mg Tablet,Delayed Release (Dr/Ec) 81 mg PO BREAKFAST Qty: 90 0RF clopidogrel 75 mg Tablet 75 mg PO DAILY Qty: 90 0RF carvedilol 3.125 mg Tablet 3.125 mg PO BID Qty: 180 0RF atorvastatin 80 mg tablet 80 mg PO QHS Qty: 90 0RF Continued Xtandi 80 mg tablet 80 mg PO DAILY metformin 500 mg tablet 500 mg PO BID Referrals / Follow Up: Yogesh Fraser MD [Primary Care Provider] - Maite Lee NP, LOAN ORIGINATOR-C [Non-Staff -Ordering Privileges] - 05/16/23 10:30 am Disposition Disposition (needs filled in before D/C Order can be placed): Home, Self Care Charges/Coding Visit Charges Inpatient E&M: 62802 Disch Hosp >30min
[2023-04-25 09:45] VITALS: BP 124/76; PULSE 87; RESP 16; TEMP 37.2; O2SAT 99
--- NOTE | 2023-04-25 09:45 | EKG12_ITS ---
Test Reason : AM EKG Blood Pressure : / mmHG Vent. Rate : 074 BPM Atrial Rate : 074 BPM P-R Int : 176 ms QRS Dur : 084 ms QT Int : 394 ms P-R-T Axes : 057 032 052 degrees QTc Int : 437 ms Normal sinus rhythm Normal ECG When compared with ECG of 24-APR-2023 10:10, MANUAL COMPARISON REQUIRED, DATA IS UNCONFIRMED Confirmed by Khoa Malagon ([id number]), proposal editor COLLEEN MORALES ([id number]) on 04/30/2023 8:22:33 AM Referred By: Boris Garza Confirmed By:Khoa Malagon
--- NOTE | 2023-04-25 10:07 | PN.CARD_ITS ---
Subjective Subjective Patient denies any anginal symptoms. He is up in the room without any activity restrictions. His right wrist looks good. We copied the patient's cath and PCI summary. He is moving to [place] for at least a month early next week. We went over the details about mandatory dual antiplatelet therapy and the fact he needs to find a physician when he gets to [place] soon as possible. His is from the area and grew up there and is aware of physicians in the area. Objective Data Vital Signs: Vital Signs Temp Pulse Resp BP Pulse Ox O2 Del Method 98.6 F 87 18 137/69 H 95 Room Air 04/25/23 08:21 04/25/23 08:21 04/25/23 08:21 04/25/23 08:21 04/25/23 09:32 04/25/23 09:32 Oxygen Delivery Method Room Air Weight: 209 lb 7.026 oz Body Mass Index (BMI) 30.9 Intake & Output: Intake and Output for Last 24 Hours 04/23/23 04/24/23 04/25/23 23:59 23:59 23:59 Intake Total 100 / 220 1155.5 / 1395.5 360 / 360 Output Total 400 / 600 200 / 200 Balance -300 / -380 955.5 / 1195.5 360 / 360 Lab / Micro Data Attestation: I reviewed the patient's lab results. 04/25/23 05:31 04/25/23 05:31 Labs: Laboratory Results - last 24 hr 04/24/23 06:10: Triglycerides 76, Cholesterol 221 H, LDL Cholesterol 140 H, VLDL Cholesterol 15, HDL Cholesterol 66 04/24/23 09:15: Activated Clotting Time 260 H 04/24/23 09:35: Activated Clotting Time 260 H 04/24/23 14:05: Activated Clotting Time Cancelled 04/25/23 05:31: WBC 3.0 L, RBC 3.39 L, Hgb 11.3 L, Hct 31.3 L, MCV 92.3, MCH 33. 3 H, MCHC 36.1 H, RDW Std Deviation 45.1 H, RDW Coeff of Terra 13.7, Plt Count 162, MPV 9.7, Immature Gran % (Auto) 1.000 H, Neut % (Auto) 65.4, Lymph % (Auto) 11.2 L, [place] % (Auto) 17.4 H, Eos % (Auto) 4.3, Baso % (Auto) 0.7, Absolute Neuts (auto) 2.0, Absolute Lymphs (auto) 0.34 L, Nucleated RBC % 0, Sodium 141, Potassium 3.9, Chloride 111 H, Carbon Dioxide 24.0, Anion Gap 6, BUN 20 H, Creatinine 0.93, Estim Creat Clear Calc 85.27, Est GFR (MDRD) Af Amer 103, Est GFR (MDRD) Non-Af 85, BUN/Creatinine Ratio 21.5 H, Glucose 165 H, Calcium 8.9, Total Bilirubin 0.80, AST 19, ALT 25, Alkaline Phosphatase 74, Total Protein 6.6, Albumin 3.2, Globulin 3.4, Albumin/Globulin Ratio 0.9 Rhythm Strip Rhythm Strip: Sinus Rhythm Rate: 80 Cardiology Labs/Tests 04/24/23 06:10: Triglycerides 76, Cholesterol 221 H, LDL Cholesterol 140 H, VLDL Cholesterol 15, HDL Cholesterol 66 04/25/23 05:31: WBC 3.0 L, RBC 3.39 L, Hgb 11.3 L, Hct 31.3 L, MCV 92.3, MCH 33.3 H, MCHC 36.1 H, Plt Count 162, MPV 9.7, Immature Gran % (Auto) 1.000 H, Neut % (Auto) 65.4, Lymph % (Auto) 11.2 L, [place] % (Auto) 17.4 H, Eos % (Auto) 4.3, Baso % (Auto) 0.7, Absolute Neuts (auto) 2.0, Nucleated RBC % 0, Sodium 141, Potassium 3.9, Chloride 111 H, Carbon Dioxide 24.0, Anion Gap 6, BUN 20 H, Creatinine 0.93, Est GFR (MDRD) Af Amer 103, Est GFR (MDRD) Non-Af 85, BUN/Creatinine Ratio 21.5 H, Glucose 165 H, Calcium 8.9, Total Bilirubin 0.80 Rhythm: EKG: ECHO: Stress Test: Cardiac Cath: PCI: CT Surgery: Holter monitor: EPS: PPM: CXR: Chest CT Scan: Physical Exam Const oriented x3 HEENT normocephalic Eyes EOMs intact bilaterally Neck no JVD Chest inspection of chest normal Resp normal respiratory effort and clear to auscultation bilaterally Cardio regular rate, regular rhythm, S1 normal heart sound, S2 normal heart sound, no murmurs, no rub and no gallops Peripheral Pulses: radial pulses present GI soft to palpation Extremity no pedal edema Skin no rashes or lesions noted Neuro Neuro Narrative: Alert and oriented x 3 Psych mental status grossly normal Assessment & Plan Assessment/Plan (1) Stented coronary artery: PLAN: The patient presented with somewhat atypical sounding chest discomfort but a stress test showed ischemia in the posterior basilar segment. Subsequent catheterization showed a severe lesion in the OM branch of the circumflex which was subsequently stented. He tolerated the procedure without incident. The patient should be maintained on dual antiplatelet therapy for 1 year uninterrupted. I went over this in detail with the patient. He has a history of diabetes and he was instituted on atorvastatin 80 mg daily. (2) Abnormal stress test: PLAN: Status post cath as noted above. He had mild disease in the LAD and right coronary arteries with a severe lesion in the OM branch of the circumflex. His LV ejection fraction was 55% with normal LV function. (3) Diabetes: QUALIFIERS: Diabetes mellitus type: type 2 Diabetes mellitus terminal make up operator insulin use: without detention use Diabetes mellitus complication status: with circulatory complication Diabetes mellitus complication detail: with other circulatory complications Qualified Code(s): E11.59 - Type 2 diabetes mellitus with other circulatory complications PLAN: The patient has coronary artery disease. He should be continued on his metformin and will be definitively treated by the primary service. PLAN: Plan 1. Should be maintained on dual antiplatelet therapy with Brilinta and aspirin uninterrupted for 1 year. 2. Will be moving to [place] in the next 3 to 4 days. He was instructed to find physician to contact their upon arrival. 3. The patient will follow-up with us in the office at the [email or web address]] once he returns from [place]. Charges/Coding Visit Charges Inpatient E&M: 52533 Subs Hosp L2
--- NOTE | 2023-04-25 10:39 | PHA.DC_ITS ---
Pharmacy [facility] Pharm[facility] Service has performed discharge medication reconciliation and counseling for this patient. The patient's discharge medication list was reviewed for discrepancies and discrepancies were resolved. The patient was counseled on the following discharge medications and changes in medications for homegoing were reviewed. 1. ASPIRIN 2. PLAVIX 3. COREG 4. LIPITOR The Reason for Use, instructions for use, and potential side effects were reviewed for all new medications. The patient's questions regarding all of their medications were answered. The patient was able to verbally demonstrate an understanding of their discharge medications. Medications at Discharge Home Medications enzalutamide 80 mg tablet (Xtandi) 80 mg PO DAILY 04/22/23 metformin 500 mg tablet 500 mg PO BID 04/22/23 aspirin 81 mg tablet,delayed release 81 mg PO BREAKFAST #90 tabs 04/25/23 atorvastatin 80 mg tablet 80 mg PO QHS #90 tabs 04/25/23 carvedilol 3.125 mg tablet 3.125 mg PO BID #180 tabs 04/25/23 clopidogrel 75 mg tablet 75 mg PO DAILY #90 tabs 04/25/23
--- NOTE | 2023-04-25 11:40 | NURSING ---
PIV removed. Discharge paperwork given and reviewed with pt. 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
== END 2023-04-25 11:46 | disposition home or self-care (01) | DRG 322 ==
LOC: ED 22:10 → PCU 23:31
PROVIDERS: Internal Medicine Cardiovascular Disease; Admitting Provider Family Medicine; Emergency Provider Emergency Medicine; PCP Internal Medicine; Referring Provider Family Medicine; Visit Provider Internal Medicine
DX: I25.110 Atherosclerotic heart disease of native coronary artery with unstable angina pectoris (principal); E11.59 Type 2 diabetes mellitus with other circulatory complications; D64.9 Anemia, unspecified; E66.9 Obesity, unspecified; R94.39 Abnormal result of other cardiovascular function study; Z82.49 Family history of ischemic heart disease and other diseases of the circulatory system; Z85.46 Personal history of malignant neoplasm of prostate; Z92.21 Personal history of antineoplastic chemotherapy; Z95.5 Presence of coronary angioplasty implant and graft; Z68.31 Body mass index [BMI] 31.0-31.9, adult
CPT/HCPCS: 36415; 71045; 71275; 78452; 80048; 80053; 80061; 84484; 85025; 85347; 92928; 93005; 93017; 93454; 99152; 99153; 99285; A9500; J7030; Q9967; A4216; C1725; C1769; C1874; C1887; C1894; C9600

== ENCOUNTER 2023-10-28 09:21 | Emergency (ER) | payer MEDICARE, SELFPAY ==
[2023-10-28 09:22] VITALS: BP 149/75; PULSE 79; RESP 16; TEMP 36; O2SAT 97; BMI 29.3
--- NOTE | 2023-10-28 09:42 | EDS_ITS ---
HPI History of Present Illness Chief Complaint: Chest Other [facility] Medical History Chest pain Diabetes History of chemotherapy Prostate cancer Home Medications ?Medication ?Instructions ?Recorded ?Last Taken ?Type enzalutamide 80 mg tablet (Xtandi) 80 mg PO DAILY 04/22/23 Unknown History metformin 500 mg tablet 500 mg PO BID 04/22/23 Unknown History aspirin 81 mg tablet,delayed 81 mg PO BREAKFAST #90 tabs 07/18/23 Unknown Rx release atorvastatin 80 mg tablet 80 mg PO QHS #90 tabs 07/18/23 Unknown Rx carvedilol 3.125 mg tablet 3.125 mg PO BID #180 tabs 07/18/23 Unknown Rx clopidogrel 75 mg tablet 75 mg PO DAILY #90 tabs 07/18/23 Unknown Rx Allergy/AdvReac Type Severity Reaction Status Date / Time No Known Allergies Allergy Verified 10/28/23 09:22 Family History Father Myocardial infarction Sister Cancer Surgical History History of left heart catheterization (LHC) (~04/24/23) Stented coronary artery (~04/24/23) Social History Smoking Status: Never smoker caffeine: No EXAM Physical Exam Const Vital Signs: 10/28/23 09:21 10/28/23 09:22 10/28/23 09:45 Temperature 96.8 F L Temperature Source Temporal Pulse Rate 79 Respiratory Rate 16 Respiratory Effort Normal Non-Labored Blood Pressure 149/75 H Blood Pressure Mean 99 Pulse Ox 97 Oxygen Delivery Method Room Air Room Air 10/28/23 11:00 10/28/23 13:00 Temperature Temperature Source Pulse Rate 60 56 L Respiratory Rate 15 17 Respiratory Effort Blood Pressure 121/66 H 138/71 H Blood Pressure Mean 81 93 Pulse Ox 96 Oxygen Delivery Method MDM MDM MDM Narrative Medical decision making narrative: HISTORY OF PRESENT ILLNESS: 68-year-old male presents with right chest/rib pain is worse with lying on the right side it with deep breaths. Notes he was changing a tire on a van this weekend. Noted he was straining to do so and noticed pain in his right ribs. Since then he said worsening pain. Denies chest pain. Denies syncope. Notes family history of aneurysm otherwise denies ripping or tearing pain, focal deficit. The patient denies recent surgery in the last 4 weeks or immobilization in the last 3 days, denies previous diagnosis of DVT or PE, hemoptysis, unilateral leg swelling or malignancy with treatment the last 6 months or palliative. No estrogen use noted. REVIEW OF SYSTEMS: Pertinent positives: Chest pain Pertinent negatives: Shortness of breath PHYSICAL EXAM: Nursing triage notes reviewed, Vital signs reviewed Constitutional: please see mdm HENT: MMM Eyes: Pupils equal round and reactive to light, Extraocular muscles intact Neck: No stridor, no JVD, full neck ROM Lungs: Clear to auscultation, No wheezing or rales. No increased work of breathing, no conversational dyspnea, no accessory muscle use, no nasal flaring. No respiratory distress noted TTP of right rib margin Heart: Regular rate and rhythm, No murmurs, No rubs and No gallops, 2+ distal pulses (radial, femoral, posterior tibial) in all extremities Abdomen: Soft, there is no tenderness, rigidity, rebound or guarding, no obvious peritoneal signs, no palpable pulsatile abdominal masses, no auscultated abdominal bruit : No CVAT Extremities: No edema Neuro: No focal neurological deficits, cranial nerves II through XII intact, 5/5 strength in all extremities. Intact sensation to light touch in all extremities, 2+ reflexes bilateral patella tendons. Normal gait. No ataxia. Skin: No rash or lesions noted MEDICAL DECISION MAKING: Chief Complaint: Chest pain External records reviewed: Reviewed prior cardiology visit from May 2023. Factors affecting care: CAD status post stent, hyperlipidemia, hypertension, type 2 diabetes, prostate cancer, history of chemotherapy Social determinants of health: none History obtained from others: none Consults: none [facility] Narrative: The patient was initially hemodynamically stable, afebrile and nontoxic- appearing. Exam without focal cardiopulmonary maladies. No pulse deficits. No focal neurologic deficits. No stigmata of VTE. I considered the following differential diagnosis: Rib fracture, ACS, anemia, pneumonia, pulmonary contusion, PE, aortic dissection ALL IMAGES (IF OBTAINED) HAVE BEEN PERSONALLY REVIEWED AND INTERPRETED BY MYSELF. EKG with normal sinus rhythm, left ax deviation, normal intervals, no STEMI I have personally reviewed the patient's chest x-ray. Chest x-ray is unremarkable for pulmonary edema, pneumothorax, pneumonia or focal cardiopulmonary abnormality. CTA of the chest shows no evidence of dissection, PE or aneurysm High-sensitivity troponin is negative, no evidence of myocardial ischemia BNP within normal limits CBC without leukocytosis, severe anemia, no thrombocytopenia. D-dimer was elevated consistent with increased clot breakdown Delta troponin negative The synthesis of the patient's history, physical exam, labs images suggest likely musculoskeletal etiology given report of recent laborious activity producing pain. Pain reproducible on exam. In addition to this is labs images to assess signs of myocardial ischemia, aortic dissection, PE, rib fracture, pulmonary contusion were negative. Patient remained hemodynamically stable is appropriate for discharge home The patient and/or family, caregivers express understanding. The patient and/or family, caregivers agrees with the plan. Shared decision making: I will have a discussion with the patient and or visitors regarding risk/benefi ts of further testing or admission. They will be made aware of of the risk/benefits inherent in this decision they will be given the opportunity to voice understanding. Total critical care time today provided was at least 0 minutes. This excludes separately billable procedures. Critical care time (if documented) is secondary to the patient having high probability of clinically significant/life threatening deterioration in the patient's condition which required my urgent intervention. Impression: 1. Chest pain 2. Right rib contusion Dispo: Discharge This note was generated with [employer] dictation software. It may contain incorrect words, spelling, and punctuation that were not noted in review of the chart prior to signing. Lab Data Labs: Laboratory Results - last 24 hr 10/28/23 10/28/23 09:50 12:02 WBC 3.0 L RBC 3.70 L Hgb 12.5 L Hct 35.3 L MCV 95.4 H MCH 33.8 H MCHC 35.4 RDW Std Deviation 42.5 RDW Coeff of Terra 12.3 Plt Count 207 MPV 9.5 Immature Gran % (Auto) 0.300 Neut % (Auto) 67.0 Lymph % (Auto) 16.2 L [place] % (Auto) 9.9 Eos % (Auto) 5.6 H Baso % (Auto) 1.0 Absolute Neuts (auto) 2.0 Absolute Lymphs (auto) 0.49 L Nucleated RBC % 0 D-Dimer Quant (PE/DVT) 0.68 H* Sodium 138 Potassium 4.1 Chloride 104 Carbon Dioxide 27.0 Anion Gap 7 BUN 18 Creatinine 0.96 Estim Creat Clear Calc 80.66 Est GFR (MDRD) Af Amer 100 Est GFR (MDRD) Non-Af 83 BUN/Creatinine Ratio 18.8 Glucose 250 H Calcium 9.3 Troponin I High Sens 3 4 B-Natriuretic Peptide 11.8 Radiography Diagnostic Testing: Clinical Impression(s) from Imaging Studies Chest X-Ray 10/28/23 10:14 IMPRESSION: No acute pulmonary process Electronically Signed: Leonel Cope MD at 10:44 EDT , Chest CTA 10/28/23 10:30 IMPRESSION: No demonstrated PE, or thoracic aortic aneurysm or dissection No superimposed acute pulmonary process, evidence of chronic bronchitis. Electronically Signed: Leonel Cope MD at 10:57 EDT , Discharge Plan Triage Chief Complaint: Chest Other ED Provider: Genaro Seals Dx/Rx/DC Orders Prescriptions: No Action Xtandi 80 mg tablet 80 mg PO DAILY metformin 500 mg tablet 500 mg PO BID aspirin 81 mg tablet,delayed release (DR/EC) 81 mg PO BREAKFAST Qty: 90 3RF atorvastatin 80 mg tablet 80 mg PO QHS Qty: 90 3RF carvedilol 3.125 mg tablet 3.125 mg PO BID Qty: 180 3RF clopidogrel 75 mg tablet 75 mg PO DAILY Qty: 90 3RF Primary Care Provider: Yogesh Fraser Referrals: Yogesh Fraser MD [Primary Care Provider] - Print Language: Georgian
--- NOTE | 2023-10-28 09:45 | EKG12_ITS ---
Test Reason : CP Blood Pressure : / mmHG Vent. Rate : 074 BPM Atrial Rate : 074 BPM P-R Int : 174 ms QRS Dur : 082 ms QT Int : 394 ms P-R-T Axes : 044 006 035 degrees QTc Int : 437 ms Normal sinus rhythm Normal ECG Confirmed by JANET BLANC MD ([id number]), film or videotape editor COLLEEN MORALES ([id number]) on 10/31/2023 9:23:33 AM Referred By: Confirmed By:JANET BLANC MD
[2023-10-28 10:01] LABS: Absolute Lymphocyte Count 0.49 X10^3/uL (0.83-4.51); Basophil# 0.03 X10^3/uL; Eosinophil# 0.17 X10^3/uL; Eosinophils% 5.6 % (0-5); Hematocrit 35.3 % (40-54); Hemoglobin 12.5 g/dL (13.0-16.5); Lymphocyte # 0.49 X10^3/ul (0.83-4.51); Lymphocyte % 16.2 % (19-41); Mean Corp Hgb Conc 35.4 g/dL (32-36); Mean Corpuscular Hgb 33.8 pg (27.0-32.0); Mean Corpuscular Volume 95.4 fL (80-94); Mean Platelet Vol. 9.5 fl (6.2-12.0); Monocyte% 9.9 % (0-10); NRBC Flagged by Analyzer 0 % (0-5); Neutrophil # 2.03 X10^3/uL (2.7-7.7); POSITIVE DIFFERENTIAL YES; Platelet Count 207 K/mm3 (150-450); RBC Distribution Width CV 12.3 % (11.6-14.6); RBC Distribution Width SD 42.5 fl (35.1-43.9)
--- NOTE | 2023-10-28 10:14 | RAD_ITS ---
STUDY: X-RAY CHEST REASON FOR EXAM: Male, 68 years old. Atypical chest pain TECHNIQUE: Single AP portable view of the chest. COMPARISON: None. FINDINGS: EKG leads overlie the chest The lungs are clear and expanded. There is no demonstrated pleural abnormality. Normal size heart. Normal mediastinum and renetta. Normal visualized pulmonary arteries. There is atherosclerotic calcification of the aortic arch with tortuosity. There are diffuse degenerative changes of the visualized thoracic spine. Normal visualized ribs, clavicles, and shoulders. There is no demonstrated abnormality of the visualized soft tissue structures of the upper abdomen. RAD/Chest 1 View (Portable) IMPRESSION: No acute pulmonary process Electronically Signed: Leonel Cope MD at 10:44 EDT ,
[2023-10-28 10:16] LABS: D-Dimer Quantitative (DVT/PE) 0.68 FEU/ug/m (0.27-0.49)
[2023-10-28 10:20] LABS: Anion Gap 7 (5-15); BUN 18 mg/dL (7-18); BUN/Creat Ratio 18.8 RATIO (10-20); Calcium,Total 9.3 mg/dL (8.5-10.1); Chloride 104 mmol/L (98-107); Creatinine, Serum 0.96 mg/dL (0.70-1.30); EST Glomerular Filtration Rate 83 mL/min (>60); Est Glom Filt Rate - Afr Amer 100 mL/min (>60); Estimated Creatinine Clearance 80.66 ml/min; Glucose 250 mg/dL (74-106); Potassium 4.1 mmol/L (3.5-5.1); Sodium Level 138 mmol/L (136-145); Troponin-I HS (w/2H Reflex) 3 pg/mL (3.0-78.0)
[2023-10-28 10:22] LABS: BNP,B-Type NATRIURETIC PEPTIDE 11.8 pg/mL (0-100)
--- NOTE | 2023-10-28 10:30 | CT_ITS ---
STUDY: CTA CHEST REASON FOR EXAM: Male, 68 years old. Atypical chest pain RADIATION DOSAGE (If Supplied By Facility): CTDIvol = ( 12.36 ) mGy, DLP = ( 459.63 ) mGycm TECHNIQUE: The examination was performed with the intravenous administration of IV 100mL Isovue-370. Post-processing of the angiographic images was performed, with multiplanar reformation and 3D reconstruction. Individualized dose optimization techniques were used for this CT. COMPARISON: 04/22/2023 FINDINGS: Normal enhancement of the main pulmonary artery and right and left pulmonary arteries. Normal enhancement of the bilateral peripheral pulmonary arteries. There is no demonstrated pulmonary embolism. Normal thoracic aorta and visualized great vessels. There is no demonstrated aortic dissection. Normal heart and pericardium. There are calcifications of the coronary arteries. Normal mediastinum. Normal hilar regions. There is peribronchial thickening. The lungs are well expanded. Normal pulmonary parenchyma. Normal pleura. Normal chest wall structures. There are degenerative changes of thoracic spine. No demonstrated rib fracture Normal visualized upper abdomen. CT/CTA Chest W/WO Contrast IMPRESSION: No demonstrated PE, or thoracic aortic aneurysm or dissection No superimposed acute pulmonary process, evidence of chronic bronchitis. Electronically Signed: Leonel Cope MD at 10:57 EDT ,
[2023-10-28 11:00] VITALS: BP 121/66; PULSE 60; RESP 15
[2023-10-28] MEDS: Aspirin 81 MG TAB.CHEW 324 MG PO (11:13)
[2023-10-28 11:58] LABS: Reflex Troponin-HS? (from REC) Y
[2023-10-28 12:34] LABS: Troponin-I HS 4 pg/mL (3.0-78.0)
[2023-10-28 13:00] VITALS: BP 138/71; PULSE 56; RESP 17; O2SAT 96
[2023-10-28 13:47] VITALS: BP 134/74; PULSE 61; RESP 16; TEMP 36.6; O2SAT 99
== END 2023-10-28 13:47 | disposition home or self-care (01) ==
PROVIDERS: Emergency Provider Emergency Medicine; PCP Internal Medicine; Visit Provider Emergency Medicine
DX: R07.9 Chest pain, unspecified (principal); E11.9 Type 2 diabetes mellitus without complications; S20.211A Contusion of right front wall of thorax, initial encounter; I10 Essential (primary) hypertension; I25.10 Atherosclerotic heart disease of native coronary artery without angina pectoris; E78.5 Hyperlipidemia, unspecified; Z92.21 Personal history of antineoplastic chemotherapy; Z95.5 Presence of coronary angioplasty implant and graft; R06.02 Shortness of breath; X50.9XXA Other and unspecified overexertion or strenuous movements or postures, initial encounter
CPT/HCPCS: 71045; 71275; 80048; 83880; 84484; 85025; 85379; 93005; 99284; Q9967; A4216

== ENCOUNTER 2024-08-17 15:14 | Emergency (ER) | payer MEDICARE, SELFPAY ==
[2024-08-17 15:16] VITALS: BP 161/80; PULSE 77; RESP 16; TEMP 36.6; O2SAT 96; BMI 29.7
--- NOTE | 2024-08-17 15:43 | ED.VIS.GI ---
HPI HPI - GI History of Present Illness Chief Complaint: Abd Pain Informant: patient Abdominal Pain/Flank Pain Onset: Today Context: Gradual Onset Timing: Continuous Quality: Dull Location: RUQ and RLQ Worsened by: Nothing Relieved by: Nothing Nausea/Vomiting/Emesis GI Symptom: Positive for Nausea; Negative for Vomiting Diarrhea/Melena/Hematochezia GI Symptom: Negative for Diarrhea, Melena or Hematochezia Associated Symptoms Associated Symptoms: Positive for Dysuria and Urgency; Negative for Frequency or Hematuria Narrative Narrative: Patient presents with right-sided abdominal pain that began today. Patient states it came on gradually. Patient states it has been constant. Patient states it resolved once he got to the emergency department. Patient describes her pain as a dull. Patient states it is mainly over the right side of his abdomen. Patient states nothing makes it worse and nothing makes it better. Patient admits to slight nausea but denies any vomiting. Patient denies any diarrhea, melena, or hematochezia. Patient admits to some dysuria and urgency. Patient denies any frequency or hematuria. [facility] Medical History (Updated 08/17/24 @ 19:[address] Jeremias Moss, DO) Diabetes Chest pain Prostate cancer History of chemotherapy Home Medications ?Medication ?Instructions ?Recorded ?Last Taken ?Type enzalutamide 80 mg tablet (Xtandi) 80 mg PO DAILY 04/22/23 Unknown History metformin 500 mg tablet 500 mg PO BID 04/22/23 Unknown History aspirin 81 mg tablet,delayed 81 mg PO BREAKFAST #90 tabs 07/18/23 Unknown Rx release atorvastatin 80 mg tablet 80 mg PO QHS #90 tabs 07/14/24 Unknown Rx carvedilol 3.125 mg tablet 3.125 mg PO BID #180 tabs 07/20/24 Unknown Rx clopidogrel 75 mg tablet 75 mg PO DAILY #90 tabs 07/21/24 Unknown Rx bromfenac 0.075 % eye drops 1 drp ophthalmic (eye) DAILY 08/17/24 Unknown History (BromSite) hydrocodone-acetaminophen 5-325mg 1 tab PO Q6H PRN PRN Pain 3 days 08/17/24 Unknown Rx 5mg-325mg #10 TABLETS ofloxacin 0.3 % eye drops 1 drp ophthalmic (eye) 4X/DAY 08/17/24 Unknown History Allergy/AdvReac Type Severity Reaction Status Date / Time No Known Allergies Allergy Verified 08/17/24 15:16 Family History Father Myocardial infarction Sister Cancer Surgical History Hx of prostatectomy Stented coronary artery (~04/24/23) History of left heart catheterization (LHC) (~04/24/23) Social History Smoking Status: Never smoker alcohol intake: never substance use type: does not use caffeine: Yes Type: coffee Number of servings: 3 ROS ROS ED Constitutional Constitutional ED: Denies chills or fever(s) Eyes Eyes: Denies blurry vision or change in vision ENT ENT ED: Reports rhinorrhea; Denies sore throat Cardiovascular Cardiovascular: Denies chest pain or palpitations Respiratory/Chest Respiratory/Chest: Denies cough or dyspnea Gastrointestinal Gastrointestinal: Reports abdominal pain and nausea; Denies diarrhea, melena or vomiting Genitourinary Genitourinary ED: Reports dysuria; Denies hematuria Musculoskeletal Musculoskeletal: Denies back pain or neck pain Integumentary Denies abscess or rash Neurologic Neurologic: Denies headache(s) or weakness Allergic/Immunologic Allergic/Immunologic ED: Denies mouth swelling or urticaria EXAM Physical Exam Const Vital Signs: 08/17/24 15:16 08/17/24 17:15 08/17/24 19:23 Temperature 97.8 F 98.0 F Temperature Source Oral Pulse Rate 77 69 68 Respiratory Rate 16 18 16 Blood Pressure 161/80 H 145/74 H 160/80 H Blood Pressure Mean 107 97 106 Pulse Ox 96 95 97 Oxygen Delivery Method Room Air Room Air Positive well nourished and well developed General Appearance ED: well developed and NAD HEENT Reports moist mucous membranes Neck supple and no JVD Resp normal respiratory effort and clear to auscultation bilaterally Cardio regular rate and regular rhythm GI non-tender and non-distended Palpation: soft Extremity full ROM General Extremety ED: Negative for edema or tenderness General Extremity: Negative for edema Neuro CN's II-XII intact bilaterally, moves all extremities and no sensory deficits noted Sensorium / Orientation: alert Motor Exam: strength 5/5 throughout Psych mental status grossly normal MDM MDM MDM Narrative Medical decision making narrative: Differential diagnosis includes appendicitis, diverticulitis, cholecystitis, cholelithiasis, ureteral calculus, pyelonephritis, gastroenteritis, bowel obstruction, and perforation.. CBC will be obtained to assess for leukocytosis and anemia. Comprehensive metabolic profile will be obtained to assess for hepatic function, renal function, and electrolyte abnormality. Lipase will be obtained to assess for pancreatitis. Urinalysis will be obtained to assess for urinary tract infection and hematuria. CT scan of the abdomen pelvis will be obtained to assess for appendicitis, diverticulitis, cholecystitis, and ureteral calculus. Lab Data Attestation: I reviewed the patient's lab results. Lab results narrative: CBC was reviewed. There is a mild anemia with a hemoglobin of 12.1 and hematocrit of 34.2. The remainder is within normal limits. Comprehensive metabolic profile was reviewed. Glucose was elevated at 190. Alkaline phosphatase was slightly elevated at 158. The remainder was essentially within normal limits. Lipase was reviewed and was normal at 17. Urinalysis was reviewed. Occult blood was found 50. There are 10-25 red blood cells. There is no evidence of urinary tract infection. Labs: Laboratory Results - last 24 hr 08/17/24 08/17/24 15:25 17:20 WBC 8.2 RBC 3.64 L Hgb 12.1 L Hct 34.2 L MCV 94.0 MCH 33.2 H MCHC 35.4 RDW Std Deviation 45.1 H RDW Coeff of [place] 13.2 Plt Count 243 MPV 9.5 Immature Gran % (Auto) 0.900 Neut % (Auto) 91.4 H Lymph % (Auto) 4.2 L [place] % (Auto) 2.9 Eos % (Auto) 0.2 Baso % (Auto) 0.4 Absolute Neuts (auto) 7.5 Absolute Lymphs (auto) 0.34 L Nucleated RBC % 0 Sodium 138 Potassium 4.6 Chloride 104 Carbon Dioxide 20.1 L Anion Gap 14 BUN 22 H Creatinine 0.95 Estim Creat Clear Calc 80.73 Est GFR (MDRD) Non-Af 86 BUN/Creatinine Ratio 23.5 H Glucose 190 H Calcium 9.7 Total Bilirubin 0.62 AST 18 ALT 18 Alkaline Phosphatase 158 H Total Protein 7.1 Albumin 4.4 Globulin 2.7 Albumin/Globulin Ratio 1.6 Lipase 17 Urine Color Straw Urine Clarity Clear Urine pH 7.0 Ur Specific [place] 1.010 Urine Protein 15 H Urine Glucose (UA) 100 H Urine Ketones 5 H Urine Occult Blood 150 H Urine Nitrite Negative Urine Bilirubin Negative Urine Urobilinogen Normal Ur Leukocyte Esterase Negative Urine RBC 10-25 SEEN Urine WBC 0-5 SEEN Ur Squamous Epith Cells 0-5 SEEN Urine Bacteria 0 SEEN Urine Mucus 0 SEEN Radiography Diagnostic Testing: Clinical Impression(s) from Imaging Studies Abdomen/Pelvis CT 08/17/24 15:54 IMPRESSION: Right-sided hydronephrosis and hydroureter with perinephric and Luli ureteral inflammatory stranding. Findings due to a 3 mm stone in the distal right ureter No free intraperitoneal fluid, air, or suspicious adenopathy Nonspecific induration of the mesenteric fat Degenerative bony changes Reading Location: [id number] scan of the abdomen and pelvis was obtained. There is right-sided hydronephrosis and hydroureter due to a 3 mm stone in the right distal ureter. There is no free fluid or free air. There is no other acute abnormality noted. This was interpreted by the radiologist was also independently reviewed by myself. Treatment and Re-Evaluation :: Patient was given IV fluids. Patient was feeling better on reevaluation. Patient was advised of his findings. Patient was given a prescription for a short course of [place]. Patient was instructed to follow-up with his urologist as scheduled. Patient was instructed to return if worse in any way. Patient understood and was agreeable with the plan. All questions were answered. Discharge Plan Triage Chief Complaint: Abd Pain ED Provider: Jeremias Moss Dx/Rx/DC Orders Clinical Impression: Calculus of distal right ureter, Diabetes, Prostate cancer Instructions: ED Kidney Stone with Pain Prescriptions: New hydrocodone-acetaminophen 5-325 mg tablet 1 tab PO Q6H PRN PRN (Reason: Pain) 3 Days Qty: 10 0RF No Action Xtandi 80 mg tablet 80 mg PO DAILY metformin 500 mg tablet 500 mg PO BID ofloxacin 0.3 % drops 1 drp ophthalmic (eye) 4X/DAY bromfenac [BromSite] 0.075 % drops 1 drp ophthalmic (eye) DAILY aspirin 81 mg tablet,delayed release (DR/EC) 81 mg PO BREAKFAST Qty: 90 3RF atorvastatin 80 mg tablet 80 mg PO QHS Qty: 90 3RF carvedilol 3.125 mg tablet 3.125 mg PO BID Qty: 180 3RF clopidogrel 75 mg tablet 75 mg PO DAILY Qty: 90 3RF Primary Care Provider: Yogesh Fraser Referrals: Yogesh Fraser MD [Primary Care Provider] - 5-7 Days Kelvin Vasquez PA [Allied Health Professional] - Keep Thaddeus appointment Print Language: Faroese Disposition Disposition: Home, Self Care Discharge Date/Time: 08/17/24 19:23
[2024-08-17 15:48] LABS: Absolute Lymphocyte Count 0.34 X10^3/uL (0.83-4.51); Absolute Neutrophil Count 7.5 X10^3/uL (2.0-7.7); Basophil# 0.03 X10^3/uL; Basophil% 0.4 % (0-1); Eosinophil# 0.02 X10^3/uL; Eosinophils% 0.2 % (0-5); Hematocrit 34.2 % (40-54); Hemoglobin 12.1 g/dL (13.0-16.5); Lymphocyte # 0.34 X10^3/ul (0.83-4.51); Lymphocyte % 4.2 % (19-41); Mean Corp Hgb Conc 35.4 g/dL (32-36); Mean Corpuscular Hgb 33.2 pg (27.0-32.0); Mean Platelet Vol. 9.5 fl (6.2-12.0); Monocyte# 0.24 X10^3/uL; Monocyte% 2.9 % (0-10); NRBC Flagged by Analyzer 0 % (0-5); Neutrophil # 7.47 X10^3/uL (2.7-7.7); Neutrophil % 91.4 % (47-70); POSITIVE DIFFERENTIAL YES; Platelet Count 243 K/mm3 (150-450); RBC Distribution Width CV 13.2 % (11.6-14.6); RBC Distribution Width SD 45.1 fl (35.1-43.9); Red Blood Count 3.64 M/mm3 (4.6-6.2); White Blood Count 8.2 K/mm3 (4.4-11.0)
--- NOTE | 2024-08-17 15:54 | CT_ITS ---
PROCEDURE: ABDOMEN/PELVIS W IV CONT ONLY 08/17/2024 REASON FOR EXAM: ABDOMINAL PAIN TECHNIQUE: ABDOMEN/PELVIS W IV CONT ONLY Coronal and Sagittal reconstruction series were provided. CONTRAST: Isovue 370 VOLUME: 100 mL One or more dose reduction techniques were used (e.g., Automated exposure control, adjustment of the mA and/or kV according to patient size, use of iterative reconstruction technique. RADIATION DOSE SUMMARY: CTDlvol: 25.59 mGy DLP: 1101.4 mGycm COMPARISON: None FINDINGS: Lung bases: Clear Liver: Normal size. No mass. Gallbladder: Unremarkable Spleen: Normal size. Pancreas: Normal size without evidence of mass surrounding inflammation or ductal dilation. Adrenals: Unremarkable Kidneys: Normal left kidney. Right kidney shows hydronephrosis and hydroureter with perinephric and Luli ureteral inflammatory stranding. Findings due to a 3 mm calcification at the right UVJ seen on axial image 109. Bladder: Unremarkable Bowel: Retained stool noted in the colon, scattered diverticula without CT evidence of acute diverticulitis. Small bowel loops are unremarkable. Appendix: Not visualized No free intraperitoneal fluid, air, or suspicious adenopathy. There is nonspecific induration of the mesenteric fat. Peripheral calcifications in the abdominal aorta without aneurysm. Bones: Degenerative changes of the spine. CT/Abdomen/Pelvis W IV Cont ONLY IMPRESSION: Right-sided hydronephrosis and hydroureter with perinephric and Luli ureteral i nflammatory stranding. Findings due to a 3 mm stone in the distal right ureter No free intraperitoneal fluid, air, or suspicious adenopathy Nonspecific induration of the mesenteric fat Degenerative bony changes Reading Location: [id number]
[2024-08-17 15:57] LABS: ALB/GLOB Ratio 1.6 RATIO (0.9-2.4); AST(SGOT) 18 U/L (<=37); Alanine Aminotransfer ALT/SGPT 18 U/L (<=46); Albumin, Serum 4.4 g/dL (3.4-4.8); Alkaline Phosphatase 158 U/L (40-129); Anion Gap 14 (5-15); BUN 22 mg/dL (4-19); BUN/Creat Ratio 23.5 RATIO (10-20); Calcium,Total 9.7 mg/dL (7.6-11.0); Carbon Dioxide 20.1 mmol/L (21.0-32.0); Chloride 104 mmol/L (98-108); Creatinine, Serum 0.95 mg/dL (0.70-1.20); EST Glomerular Filtration Rate 86 (>60); Estimated Creatinine Clearance 80.73 ml/min (50-250); Globulin 2.7 g/dL (2.2-4.2); Glucose 190 mg/dL (70-99); Lipase 17 U/L (13-75); Potassium 4.6 mmol/L (3.3-5.1); Protein, Total 7.1 g/dL (5.9-8.4); Sodium Level 138 mmol/L (133-145); Total Bilirubin 0.62 mg/dL (0.00-1.30)
[2024-08-17] MEDS: 0.9% Normal Saline (1000mL) 1,000 ML 1000 ML IV (16:09)
[2024-08-17 17:15] VITALS: BP 145/74; PULSE 69; RESP 18; O2SAT 95
[2024-08-17 17:31] LABS: Bacteria 0 SEEN /hpf (None Seen); Mucous, Urine 0 SEEN /hpf (<or=2+)
[2024-08-17 18:05] LABS: Color, Urine Straw (Yellow); Glucose, Dipstick 100 mg/dl (Normal); Ketone-Dipstick 5 mg/dl (Negative); Leukocyte Esterase-Dipstick Negative /ul (Negative); Nitrite-Dipstick Negative (Negative); Occult Blood-Urine 150 /ul (Negative); Protein-Dipstick 15 mg/dl (Negative); Urine Bilirubin Dipstick Negative (Negative); Urine Clarity Clear (Clear); Urine Urobilinogen Normal (Normal)
[2024-08-17 18:53] LABS: Red Blood Cells-Urine 10-25 SEEN /hpf (0-5); White Blood Cells 0-5 SEEN /hpf (0-5)
[2024-08-17 18:54] LABS: Squamous Epithelial Cells - UA 0-5 SEEN /hpf (0-5)
[2024-08-17 19:23] VITALS: BP 160/80; PULSE 68; RESP 16; TEMP 36.7; O2SAT 97
== END 2024-08-17 19:23 | disposition home or self-care (01) ==
PROVIDERS: Emergency Provider Emergency Medicine; PCP Internal Medicine; Visit Provider Emergency Medicine
DX: N13.2 Hydronephrosis with renal and ureteral calculous obstruction (principal); C61 Malignant neoplasm of prostate; E11.9 Type 2 diabetes mellitus without complications; Z95.5 Presence of coronary angioplasty implant and graft
CPT/HCPCS: 74177; 80053; 81001; 83690; 85025; 96360; 96361; 99282; Q9967; A4216